=== PATIENT | male | born 1955 | race Caucasian/White ===

== ENCOUNTER 2016-09-09 16:56 | Emergency (ER) | payer MEDICARE, OTHER ==
[~2016-09-09] VITALS: Ht 170.2 cm; Wt 93.0 kg
[~2016-09-09 16:56] MED LIST: /LOR25TA PO; BYSTOLIC PO; COZA50TA PO; HYDR-3713 PO; MELO7.5T6 PO; METF1000 PO; METF500T PO; METF500T4 OR; MICA80TA3 PO; NEUR100C OR; NEUR600T PO; NICO21DI24 TD; PRAV20TA2 PO; PREG50CA OR; SITA50TAB PO; SOMA350T OR; TRAM50TA2 OR; VICO5TAB PO; VICODIN PO; ZANA4CAP OR; ZYLO300T4 PO; hydrcodone
[2016-09-09 16:57] VITALS: BP 166/96
[2016-09-09] MEDS ORDERED: IBUPROFEN 600 MG TAB PO ONE (17:30)
[2016-09-09] MEDS ORDERED: SOMA350T PO (17:35)
[2016-09-09] MEDS ORDERED: IBUP600T26 PO (17:35)
== END 2016-09-09 17:52 | disposition home or self-care (01) ==
LOC: M ED 17:46
DX: S76.312A Strain of muscle, fascia and tendon of the posterior muscle group at thigh level, left thigh, initial encounter (principal); X50.9XXA Other and unspecified overexertion or strenuous movements or postures, initial encounter; Y92.009 Unspecified place in unspecified non-institutional (private) residence as the place of occurrence of the external cause; Y93.89 Activity, other specified; Y99.8 Other external cause status; E11.9 Type 2 diabetes mellitus without complications; F17.210 Nicotine dependence, cigarettes, uncomplicated; Z79.899 Other long term (current) drug therapy; Z79.84 Long term (current) use of oral hypoglycemic drugs; Z79.1 Long term (current) use of non-steroidal anti-inflammatories (NSAID)

== ENCOUNTER → 2016-09-10 | Outpatient (CLI) | payer OTHER, MEDICARE ==
[~2016-09-10] MED LIST changes: +IBUP600T26 PO; +SOMA350T PO
[2016-09-10 09:39] LABS: MEAN CORPUSCULAR HEMOGLOBIN 32.7 pg (27.0-33.0); MEAN CORPUSCULAR HGB CONC 34.4 g/dl (32.0-36.5); MEAN CORPUSCULAR VOLUME 95.1 fl (80.0-96.0); RED CELL DISTRIBUTION WIDTH 13.4 % (11.5-14.5)
[2016-09-10 09:46] LABS: INR 0.91
[2016-09-10 10:01] LABS: ALBUMIN 3.4 GM/DL (3.2-5.2); ALBUMIN/GLOBULIN RATIO 0.89 (1.00-1.93); ALKALINE PHOSPHATASE 91 U/L (45-117); ALT/SGPT 25 U/L (12-78); ANION GAP 6 MEQ/L (8-16); AST/SGOT 13 U/L (15-37); BILIRUBIN,TOTAL 0.4 MG/DL (0.2-1.0); BLOOD UREA NITROGEN 23 MG/DL (7-18); CALCIUM LEVEL 8.8 MG/DL (8.8-10.2); CARBON DIOXIDE LEVEL 30 MEQ/L (21-32); CHLORIDE LEVEL 108 MEQ/L (98-107); CHOLESTEROL LEVEL 217 MG/DL (<200); CREATININE FOR GFR 0.92 MG/DL (0.70-1.30); GLOMERULAR FILTRATION RATE > 60.0 (>49); GLUCOSE, FASTING 125 MG/DL (80-110); POTASSIUM SERUM 4.4 MEQ/L (3.5-5.1); SODIUM LEVEL 144 MEQ/L (136-145); TOTAL PROTEIN 7.2 GM/DL (6.4-8.2); TRIGLYCERIDES LEVEL 235 MG/DL (<150)
--- NOTE | 2016-09-10 22:33 | REP ---
Clinical: Hypertension . Comparison: 08/28/2015 . Technique: PA and lateral. Findings: The mediastinum and cardiac silhouette are normal. The lung chopra are clear and without acute consolidation, effusion, or pneumothorax. Stable Antonio rods are identified in the lumbar spine. Epidural stimulator catheter with leads in the mid thoracic level. Impression: 1. No acute cardiopulmonary process. Signed by Meir Grewal MD 09/10/2016 10:25 P
--- NOTE | 2016-09-11 20:38 | ECGEPIP ---
Stationary ECG Study [facility] Test Date: 2016-09-10 Pat Name: ERINN NATION Department: Room: - Gender: M [employer] Principal: [employer] : 1955 Requested By: Purnima Sepulveda Order Number: [id number] Reading MD: Nando Mckinnon Measurements Intervals [place] Rate: 76 P: 53 OR: 140 QRS: 60 QRSD: 86 T: -12 QT: 360 QTc: 405 Interpretive Statements SINUS RHYTHM NONSPECIFIC T-WAVE ABNORMALITY Electronically Signed On 09-11-2016 20:38:16 EDT by Nando Mckinnon
== END ==
LOC: M LAB 08:56
PROVIDERS: ATTEND Family Medicine
DX: I10 Essential (primary) hypertension (principal); N40.1 Benign prostatic hyperplasia with lower urinary tract symptoms

== ENCOUNTER → 2017-03-06 | Outpatient (CLI) | payer MEDICARE ==
[~2017-03-06] MED LIST changes: +IBUP-1022 PO; -IBUP600T26 PO; -MELO7.5T6 PO; +MELO7.5T7 PO; -METF1000 PO; +METF10004 PO
== END ==
LOC: M LAB 13:18
PROVIDERS: ATTEND Family Medicine
DX: E11.9 Type 2 diabetes mellitus without complications (principal)

== ENCOUNTER → 2017-05-15 | Outpatient (CLI) | payer MEDICARE ==
[2017-05-15 12:09] LABS: ANION GAP 7 MEQ/L (8-16); BLOOD UREA NITROGEN 22 MG/DL (7-18); CALCIUM LEVEL 9.2 MG/DL (8.8-10.2); CARBON DIOXIDE LEVEL 30 MEQ/L (21-32); CHLORIDE LEVEL 103 MEQ/L (98-107); CHOLESTEROL LEVEL 221 MG/DL (<200); CREATININE FOR GFR 0.78 MG/DL (0.70-1.30); GLOMERULAR FILTRATION RATE > 60.0 (>49); GLUCOSE, FASTING 131 MG/DL (70-100); HDL CHOLESTEROL 58 MG/DL (>40); NON-HDL-C 163 MG/DL; POTASSIUM SERUM 4.4 MEQ/L (3.5-5.1); SODIUM LEVEL 140 MEQ/L (136-145); TRIGLYCERIDES LEVEL 165 MG/DL (<150)
[2017-05-15 13:06] LABS: CREATININE, URINE 27.7 MG/DL; MAU/CREAT RATIO 1209.3 MCG/MG (0.0-30.0)
[2017-05-15 14:05] LABS: ESTIMATED AVERAGE GLUCOSE 146 MG/DL (60-110); HEMOGLOBIN A1c 6.7 %
== END ==
LOC: M LAB 10:46
DX: E11.9 Type 2 diabetes mellitus without complications (principal); Z23 Encounter for immunization
CPT/HCPCS: 83036

== ENCOUNTER 2017-06-10 14:36 | Emergency (ER) | payer MEDICARE | END 2017-06-10 17:54 | disposition home or self-care (01) | LOC: M ED 14:36 | DX: S80.02XA Contusion of left knee, initial encounter (principal); W19.XXXA Unspecified fall, initial encounter; Y92.410 Unspecified street and highway as the place of occurrence of the external cause; M54.5 Low back pain; M51.36 Other intervertebral disc degeneration, lumbar region; I10 Essential (primary) hypertension; E78.5 Hyperlipidemia, unspecified; E11.9 Type 2 diabetes mellitus without complications; F17.200 Nicotine dependence, unspecified, uncomplicated; Z96.89 Presence of other specified functional implants; Z79.899 Other long term (current) drug therapy; Z79.84 Long term (current) use of oral hypoglycemic drugs; Z79.82 Long term (current) use of aspirin | CPT/HCPCS: 73564 ==

== ENCOUNTER → 2017-06-25 | Outpatient (REF) | payer MEDICARE ==
[2017-06-25 14:19] LABS: TOTAL PROTEIN,RANDOM URINE 30.5 MG/DL (0.0-12.0); URINE TOTAL PROTEIN 30.5 MG/DL (0-12)
[2017-06-25 14:20] LABS: COMPLEMENT C3 148 MG/DL (90-180); COMPLEMENT C4 42.3 MG/DL (10-40); TOTAL PROTEIN 7.5 GM/DL (6.4-8.2); TOTAL PROTEIN,RANDOM URINE 30.5 MG/DL (0.0-12.0); URINE VOLUME RANDOM ML
[2017-06-26 11:34] LABS: HEPATITIS B SURFACE ANTIGEN NEGATIVE (NEGATIVE)
[2017-06-26 11:37] LABS: HEPATITIS B SURFACE ANTIBODY POSITIVE (POSITIVE)
[2017-06-26 11:53] LABS: HEPATITIS C VIRUS ABY INDEX 0.2 INDEX (<0.8)
[2017-06-26 11:56] LABS: HIV 1&2 SCREEN CENTAUR NEGATIVE (NEGATIVE)
[2017-06-26 13:50] LABS: ALBUMIN % 53.5 % (55.8-66.1); ALPHA-1-GLOBULIN % 4.8 % (2.9-4.9); ALPHA-2-GLOBULINS % 14.2 % (7.1-11.8); BETA-1-GLOBULINS % 6.2 % (4.7-7.2)
[2017-06-26 13:51] LABS: ALBUMIN 4.01 GM/DL (3.29-5.55); ALPHA-1-GLOBULINS 0.36 GM/DL (0.17-0.41); ALPHA-2-GLOBULINS 1.07 GM/DL (0.42-0.99); BETA-1-GLOBULINS 0.47 GM/DL (0.28-0.60); BETA-2-GLOBULINS 0.49 GM/DL (0.19-0.55); BETA-2-GLOBULINS % 6.5 % (3.2-6.5); GAMMA GLOBULIN % 14.8 % (11.1-18.8); GAMMA GLOBULINS 1.11 GM/DL (0.65-1.58)
[2017-06-26 15:19] LABS: ANTI DOUBLE STRAND-DNA AB <1 IU/mL (0-9); ANTINUCLEAR ANTIBODIES DIRECT Positive (Negative); RNP ANTIBODIES <0.2 AI (0.0-0.9); SJOGREN'S ANTI SS-A <0.2 AI (0.0-0.9); SMITH ANTIBODIES <0.2 AI (0.0-0.9)
[2017-06-30 00:07] LABS: ANCA-ATYPICAL <1:20 titer (Neg:<1:20); ANTI DOUBLE STRAND-DNA AB <1 IU/mL (0-9); CYTOPLASMIC NEUTROP AB ANCA-C <1:20 titer (Neg:<1:20); PERINUCLEAR AB ANCA-P <1:20 titer (Neg:<1:20)
== END ==
LOC: M LAB REF 13:11
DX: R80.9 Proteinuria, unspecified (principal)
CPT/HCPCS: 84165

== ENCOUNTER → 2017-07-01 | Outpatient (CLI) | payer OTHER, MEDICARE | LOC: M RAD 13:08 | DX: M96.1 Postlaminectomy syndrome, not elsewhere classified (principal) ==

== ENCOUNTER → 2017-07-02 | Outpatient (CLI) | payer MEDICARE | LOC: M RAD 12:08 | DX: K76.89 Other specified diseases of liver (principal); E11.22 Type 2 diabetes mellitus with diabetic chronic kidney disease | CPT/HCPCS: 76775 ==

== ENCOUNTER → 2017-07-07 | Outpatient (CLI) | payer MEDICARE | LOC: M RAD 15:36 | DX: M25.562 Pain in left knee (principal); R93.7 Abnormal findings on diagnostic imaging of other parts of musculoskeletal system | CPT/HCPCS: 73700 ==

== ENCOUNTER 2017-08-25 09:34 | Day surgery (SDC) | payer MEDICARE ==
[2017-08-25] MEDS: NS 1,000 ML IV (10:30)
[2017-08-25] MEDS ORDERED: PROPOFOL 200 MG/20 ML VIAL As Ordered ×4 (11:07→12:50)
[2017-08-25] MEDS ORDERED: LIDOCAINE 2% INJ 100 MG/5 ML SDV (FOR ANES.) As Ordered (11:07)
[2017-08-25] MEDS ORDERED: fentaNYL 100 MCG/2 ML INJECTION (J3010) As Ordered (11:41)
== END 2017-08-25 13:53 | disposition home or self-care (01) ==
LOC: M OPP 09:34
DX: Z12.11 Encounter for screening for malignant neoplasm of colon (principal); K64.0 First degree hemorrhoids; K57.30 Diverticulosis of large intestine without perforation or abscess without bleeding; D12.0 Benign neoplasm of cecum; D12.2 Benign neoplasm of ascending colon; D12.3 Benign neoplasm of transverse colon; D12.4 Benign neoplasm of descending colon; D12.8 Benign neoplasm of rectum; Z80.0 Family history of malignant neoplasm of digestive organs; I12.9 Hypertensive chronic kidney disease with stage 1 through stage 4 chronic kidney disease, or unspecified chronic kidney disease; N18.9 Chronic kidney disease, unspecified; E11.9 Type 2 diabetes mellitus without complications; F17.210 Nicotine dependence, cigarettes, uncomplicated; M17.12 Unilateral primary osteoarthritis, left knee; Z79.82 Long term (current) use of aspirin; Z79.84 Long term (current) use of oral hypoglycemic drugs; Z79.899 Other long term (current) drug therapy; Z98.1 Arthrodesis status; Z96.9 Presence of functional implant, unspecified
CPT/HCPCS: 45385

== ENCOUNTER → 2017-08-26 | Outpatient (REF) | payer MEDICARE ==
[2017-08-26 14:00] LABS: TOTAL PROTEIN,RANDOM URINE 52.9 MG/DL (0.0-12.0)
[2017-08-28 00:07] LABS: FREE KAPPA LIGHT CHAINS SERUM 24.8 mg/L (3.3-19.4); FREE LAMBDA LIGHT CHAINS SERUM 16.9 mg/L (5.7-26.3); KAPPA/LAMBDA RATIO SERUM 1.47 (0.26-1.65)
== END ==
LOC: M LAB REF 13:06
DX: R80.9 Proteinuria, unspecified (principal)
CPT/HCPCS: 84156

== ENCOUNTER → 2017-09-11 | Outpatient (REF) | payer MEDICARE ==
[2017-09-11 14:22] LABS: TOTAL VOLUME, URINE 1400 ML
[2017-09-11 14:34] LABS: CREATININE 24 HOUR, URINE 1248.8 MG/24HR (950-2500); CREATININE, URINE 89.2 MG/DL; TOTAL PROTEIN 24 HOUR URINE 807.8 MG/24HR (50-150); URINE TOTAL PROTEIN 57.7 MG/DL (0-12)
== END ==
LOC: M LAB REF 13:36
DX: R80.9 Proteinuria, unspecified (principal)
CPT/HCPCS: 81050

== ENCOUNTER → 2017-09-18 | Outpatient (CLI) | payer MEDICARE ==
[2017-09-18 12:45] LABS: CREATININE, URINE 63.1 MG/DL; URINE TOTAL PROTEIN 57.9 MG/DL (0-12)
[2017-09-18 12:46] LABS: ALBUMIN 3.6 GM/DL (3.2-5.2); ALBUMIN/GLOBULIN RATIO 0.97 (1.00-1.93); ALKALINE PHOSPHATASE 115 U/L (45-117); ALT/SGPT 33 U/L (12-78); ANION GAP 4 MEQ/L (8-16); AST/SGOT 17 U/L (7-37); BILIRUBIN,TOTAL 0.4 MG/DL (0.2-1.0); BLOOD UREA NITROGEN 21 MG/DL (7-18); CALCIUM LEVEL 9.4 MG/DL (8.8-10.2); CARBON DIOXIDE LEVEL 30 MEQ/L (21-32); CHLORIDE LEVEL 105 MEQ/L (98-107); CHOLESTEROL LEVEL 161 MG/DL (<200); CHOLESTEROL RISK RATIO 3.354 (<5); CREATININE FOR GFR 0.88 MG/DL (0.70-1.30); GLOMERULAR FILTRATION RATE > 60.0 (>49); GLUCOSE, FASTING 153 MG/DL (70-100); HDL CHOLESTEROL 48 MG/DL (>40); LDL CHOLESTEROL 70.6 MG/DL (<100); NON-HDL-C 113 MG/DL; POTASSIUM SERUM 5.1 MEQ/L (3.5-5.1); SODIUM LEVEL 139 MEQ/L (136-145); TOTAL PROTEIN 7.3 GM/DL (6.4-8.2); TRIGLYCERIDES LEVEL 212 MG/DL (<150)
[2017-09-18 13:19] LABS: ESTIMATED AVERAGE GLUCOSE 171 MG/DL (60-110); HEMOGLOBIN A1c 7.6 %
[2017-09-24 13:55] LABS: UPEP INTERPRETATION NO M-SPIKE NOTED; URINE VOLUME RANDOM ML
== END ==
LOC: M LAB 10:46
DX: E11.9 Type 2 diabetes mellitus without complications (principal); R80.9 Proteinuria, unspecified
CPT/HCPCS: 80053

== ENCOUNTER → 2017-10-06 | Outpatient (REF) | payer MEDICARE, OTHER ==
[2017-10-06 17:39] LABS: BASO # 0.1 10^3/uL (0.0-0.2); BASO % 0.8 % (0.0-1.0); EOS # 0.1 10^3/uL (0.0-0.50); EOS % 1.8 % (0.0-3.0); HEMATOCRIT 52.2 % (42.0-52.0); HEMOGLOBIN 18.2 g/dl (13.5-17.5); IMMATURE GRANULOCYTE % 0.5 % (0-3.0); LYMPH # 2.3 10^3/uL (1.5-4.5); LYMPH % 29.1 % (24.0-44.0); MEAN CORPUSCULAR HEMOGLOBIN 32.1 pg (27.0-33.0); MEAN CORPUSCULAR HGB CONC 34.9 g/dl (32.0-36.5); MEAN CORPUSCULAR VOLUME 92.1 fl (80.0-96.0); MONO # 0.7 10^3/uL (0.0-0.8); MONO % 8.6 % (0.0-5.0); NEUTROPHILS # 4.7 10^3/uL (1.8-7.7); NEUTROPHILS % 59.2 % (36.0-66.0); PLATELET COUNT, AUTOMATED 183 10^3/uL (150-450); RED BLOOD COUNT 5.67 10^6/uL (4.30-6.10); RED CELL DISTRIBUTION WIDTH 12.9 % (11.5-14.5); WHITE BLOOD COUNT 7.9 10^3/uL (4.0-10.0)
[2017-10-06 17:40] LABS: C REACTIVE PROTEIN QUANTITATIV 0.55 MG/DL (0.00-0.30); RHEUMATOID FACTOR QUANT < 10.0 IU/ML (<15.0)
[2017-10-06 17:40] LABS: URIC ACID 8.6 MG/DL (3.5-7.2)
[2017-10-06 19:26] LABS: ERYTHROCYTE SEDIMENTATION RATE 6 mm/hr (0-20)
[2017-10-09 15:02] LABS: ANTI DOUBLE STRAND-DNA AB <1 IU/mL (0-9); ANTINUCLEAR ANTIBODIES DIRECT Positive (Negative); Lyme Disease IgG/IgM Antibodie <0.91 ISR (0.00-0.90); Lyme Disease IgM Ab Quantitati <0.80 index (0.00-0.79); RNP ANTIBODIES <0.2 AI (0.0-0.9); SJOGREN'S ANTI SS-A <0.2 AI (0.0-0.9); SJOGREN'S ANTI SS-B 2.3 AI (0.0-0.9); SMITH ANTIBODIES <0.2 AI (0.0-0.9)
== END ==
LOC: M LABDRAW1 15:37
DX: M25.562 Pain in left knee (principal)
CPT/HCPCS: 84550

== ENCOUNTER → 2017-11-24 | Outpatient (CLI) | payer MEDICARE ==
[~2017-11-24] MED LIST changes: -/LOR25TA PO; -BYSTOLIC PO; +CONRAY-43 43% 50ML VIAL (Q9960) As Ordered; -COZA50TA PO; -HYDR-3713 PO; -IBUP-1022 PO; -MELO7.5T7 PO; -METF10004 PO; -METF500T PO; -METF500T4 OR; -MICA80TA3 PO; -NEUR100C OR; -NEUR600T PO; -NICO21DI24 TD; -PRAV20TA2 PO; -PREG50CA OR; -SITA50TAB PO; -SOMA350T OR; -SOMA350T PO; -TRAM50TA2 OR; -VICO5TAB PO; -VICODIN PO; -ZANA4CAP OR; -ZYLO300T4 PO; -hydrcodone
== END ==
LOC: M RADPRO 08:59
DX: M76.52 Patellar tendinitis, left knee (principal); Z79.82 Long term (current) use of aspirin; Z96.698 Presence of other orthopedic joint implants
CPT/HCPCS: 27370

== ENCOUNTER → 2018-01-06 | Outpatient (REF) | payer MEDICARE ==
[2018-01-06 18:44] LABS: ANION GAP 11 MEQ/L (8-16); BLOOD UREA NITROGEN 17 MG/DL (7-18); CALCIUM LEVEL 9.5 MG/DL (8.8-10.2); CARBON DIOXIDE LEVEL 26 MEQ/L (21-32); CHLORIDE LEVEL 100 MEQ/L (98-107); CHOLESTEROL LEVEL 182 MG/DL (<200); CHOLESTEROL RISK RATIO 3.192 (<5); COMPLEMENT C3 180 MG/DL (90-180); CREATININE FOR GFR 0.86 MG/DL (0.70-1.30); GLOMERULAR FILTRATION RATE > 60.0 (>49); GLUCOSE, FASTING 129 MG/DL (70-100); HDL CHOLESTEROL 57 MG/DL (>40); LDL CHOLESTEROL 80 MG/DL (<100); NON-HDL-C 125 MG/DL; POTASSIUM SERUM 3.7 MEQ/L (3.5-5.1); SODIUM LEVEL 137 MEQ/L (136-145); TRIGLYCERIDES LEVEL 223 MG/DL (<150)
[2018-01-06 19:19] LABS: CREATININE, URINE 80.1 MG/DL; MAU/CREAT RATIO 506.9 MCG/MG (0.0-30.0)
[2018-01-06 21:00] LABS: ESTIMATED AVERAGE GLUCOSE 154 MG/DL (60-110)
[2018-01-09 00:06] LABS: ANA (HEP2) Positive (.); ANTI DOUBLE STRAND-DNA AB <1 IU/mL (0-9)
== END ==
LOC: M SFHCPLAZ 15:09
DX: R76.8 Other specified abnormal immunological findings in serum (principal); E11.21 Type 2 diabetes mellitus with diabetic nephropathy; Z23 Encounter for immunization
CPT/HCPCS: 83036

== ENCOUNTER → 2018-02-18 | Outpatient (CLI) | payer MEDICARE | LOC: M RADPRO 08:31 | DX: S80.01XA Contusion of right knee, initial encounter (principal); Y92.89 Other specified places as the place of occurrence of the external cause; Y93.89 Activity, other specified; X58.XXXA Exposure to other specified factors, initial encounter; Y99.8 Other external cause status; M94.261 Chondromalacia, right knee; M25.761 Osteophyte, right knee | CPT/HCPCS: 27370 ==

== ENCOUNTER → 2018-02-24 | Outpatient (REF) | payer MEDICARE ==
[2018-02-24 18:17] LABS: TOTAL PROTEIN,RANDOM URINE 76.3 MG/DL (0.0-12.0)
== END ==
LOC: M LAB REF 17:15
DX: N18.2 Chronic kidney disease, stage 2 (mild) (principal); R80.9 Proteinuria, unspecified
CPT/HCPCS: 84156

== ENCOUNTER → 2018-03-18 | Outpatient (CLI) | payer MEDICARE ==
[2018-03-18 12:03] LABS: ANION GAP 8 MEQ/L (8-16); BLOOD UREA NITROGEN 18 MG/DL (7-18); CALCIUM LEVEL 8.6 MG/DL (8.8-10.2); CARBON DIOXIDE LEVEL 28 MEQ/L (21-32); CHLORIDE LEVEL 103 MEQ/L (98-107); CREATININE FOR GFR 0.88 MG/DL (0.70-1.30); GLOMERULAR FILTRATION RATE > 60.0 (>49); GLUCOSE, FASTING 182 MG/DL (70-100); SODIUM LEVEL 139 MEQ/L (136-145)
== END ==
LOC: M LAB 11:03
DX: Z01.812 Encounter for preprocedural laboratory examination (principal); M25.562 Pain in left knee
CPT/HCPCS: 80048

== ENCOUNTER → 2018-04-30 | Outpatient (CLI) | payer MEDICARE ==
[~2018-04-30] MED LIST changes: +/LOR25TA PO; +ASPI81TA24 PO; +ATOR1TAB21 PO; +BUPR15TASR PO; +BYSTOLIC PO; +CHAN1PAK11; +CHLO125TA PO; -CONRAY-43 43% 50ML VIAL (Q9960) As Ordered; +COZA50TA PO; +CYCL10TA PO; +DICY10CA13 PO; +HYDR-3713 PO; +IBUP-1022 PO; +LYRI75CA PO; +MELO7.5T7 PO; +METF10004 PO; +METF500T PO; +METF500T4 OR; +MICA80TA3 PO; +NEUR100C OR; +NEUR600T PO; +NICO21DI24 TD; +PERC5TAB12 PO; +PRAV20TA2 PO; +PREG50CA OR; +SITA50TAB PO; +SOMA350T OR; +SOMA350T PO; +TIZA2CAP PO; +TIZA4CAP PO; +TRAM50TA2 OR; +VICO5TAB PO; +VICODIN PO; +ZANA4CAP OR; +ZYLO300T6 PO; +hydrcodone
[2018-04-30 10:10] LABS: BASO % 0.5 % (0.0-1.0); EOS # 0.2 10^3/uL (0.0-0.50); HEMATOCRIT 52.8 % (42.0-52.0); LYMPH % 30.5 % (24.0-44.0); MEAN CORPUSCULAR HEMOGLOBIN 31.7 pg (27.0-33.0); MEAN CORPUSCULAR HGB CONC 34.1 g/dl (32.0-36.5); MONO # 0.6 10^3/uL (0.0-0.8); MONO % 8.8 % (0.0-5.0); NEUTROPHILS # 3.6 10^3/uL (1.8-7.7); NEUTROPHILS % 56.7 % (36.0-66.0); PLATELET COUNT, AUTOMATED 164 10^3/uL (150-450); RED BLOOD COUNT 5.68 10^6/uL (4.30-6.10); WHITE BLOOD COUNT 6.4 10^3/uL (4.0-10.0)
[2018-04-30 10:35] LABS: BLOOD UREA NITROGEN 18 MG/DL (7-18); CALCIUM LEVEL 8.9 MG/DL (8.8-10.2); CARBON DIOXIDE LEVEL 29 MEQ/L (21-32); CHLORIDE LEVEL 99 MEQ/L (98-107); GLOMERULAR FILTRATION RATE > 60.0 (>49); GLUCOSE, FASTING 209 MG/DL (70-100); POTASSIUM SERUM 4.1 MEQ/L (3.5-5.1); SODIUM LEVEL 138 MEQ/L (136-145)
[2018-04-30 10:37] LABS: HEMOGLOBIN A1c 8.4 %
[2018-04-30 11:11] LABS: CREATININE, URINE 72.5 MG/DL; MAU/CREAT RATIO 903.4 MCG/MG (0.0-30.0)
== END ==
LOC: M LAB 09:41
PROVIDERS: ATTEND Family Medicine
DX: E11.21 Type 2 diabetes mellitus with diabetic nephropathy (principal); R61 Generalized hyperhidrosis

== ENCOUNTER 2018-06-02 11:43 | Inpatient (IN) | payer MEDICARE ==
[~2018-06-02] VITALS: Ht 167.6 cm; Wt 109.1 kg
[2018-06-02] MEDS ORDERED: POTA1TAB23 PO (11:53)
[2018-06-02] MEDS ORDERED: AMLO10TA5 PO (11:53)
[2018-06-02] MEDS ORDERED: GLIP10TA18 PO (11:53)
[2018-06-02] MEDS ORDERED: LOSA100T50 PO (11:53)
[2018-06-02] MEDS ORDERED: EPINEPHrine INJ 1 MG/ML 1ML AMP IM STA (12:04)
[2018-06-02] MEDS ORDERED: methylPREDNISolone INJ 125 MG/2 ML VIAL (J2930) IV ONE (12:15)
[2018-06-02] MEDS ORDERED: diphenhydrAMINE INJ 50MG/ML VIAL (J1200) IV ONE (12:15)
[2018-06-02] MEDS ORDERED: FAMOTIDINE IV BAG 20 MG in APPROPRIATE DILUENT 1 EA IV ONE (12:15)
[2018-06-02] MEDS ORDERED: ALBUTEROL SULFATE 2.5 MG/0.5 ML INH NEB SOLN INH ONE (12:15)
[2018-06-02 12:59] LABS: BASO # 0.1 10^3/uL (0.0-0.2); BASO % 0.6 % (0.0-1.0); EOS # 0.1 10^3/uL (0.0-0.50); EOS % 0.7 % (0.0-3.0); LYMPH # 1.4 10^3/uL (1.5-4.5); LYMPH % 15.9 % (24.0-44.0); MEAN CORPUSCULAR HEMOGLOBIN 30.8 pg (27.0-33.0); MEAN CORPUSCULAR HGB CONC 34.1 g/dl (32.0-36.5); MEAN CORPUSCULAR VOLUME 90.1 fl (80.0-96.0); MONO # 0.6 10^3/uL (0.0-0.8); MONO % 7.1 % (0.0-5.0); NEUTROPHILS # 6.7 10^3/uL (1.8-7.7); NEUTROPHILS % 75.1 % (36.0-66.0); PLATELET COUNT, AUTOMATED 157 10^3/uL (150-450); RED BLOOD COUNT 6.47 10^6/uL (4.30-6.10); WHITE BLOOD COUNT 8.9 10^3/uL (4.0-10.0)
[2018-06-02] MEDS: IPRATROPIUM 0.5MG/ALBUTEROL 2.5MG INH SOL UD 3ML (DUONEB)(J7620) NEB SCH ×3 (13:05→13:25)
[2018-06-02 13:06] LABS: HEMATOCRIT 58.3 % (42.0-52.0); HEMOGLOBIN 19.9 g/dl (13.5-17.5)
[2018-06-02 13:23] LABS: BILIRUBIN,TOTAL 0.7 MG/DL (0.2-1.0); CALCIUM LEVEL 8.5 MG/DL (8.8-10.2); CREATININE FOR GFR 1.98 MG/DL (0.70-1.30); GLOMERULAR FILTRATION RATE 36.5 (>49); POTASSIUM SERUM 3.7 MEQ/L (3.5-5.1)
[2018-06-02 13:24] LABS: ALBUMIN 3.1 GM/DL (3.2-5.2); BILIRUBIN,DIRECT 0.2 MG/DL (0.0-0.2); TOTAL PROTEIN 7.4 GM/DL (6.4-8.2)
--- NOTE | 2018-06-02 13:52 | REP ---
AP PORTABLE CHEST: 06/02/2018. Comparison: Chest x-ray 09/10/2016. Clinical history: Dyspnea and cough. Findings: The dorsal column stimulator leads have been removed from the thoracic spine. Their course along the paraspinal region to the left upper abdomen is no longer evident. There is evidence of lumbar fusion with pedicle screws and arch bars at the L1 level which is the lower most field of view. Lungs are well inflated. Some mildly prominent interstitial markings and peribronchial thickening that might reflect some bronchitis or reactive airway disease. I do not see dense consolidation with air bronchograms. No pleural effusion, lateral pleural thickening or apical scar. The heart is not enlarged. The aorta is mildly tortuous but normal for age. Airway is intact. The pulmonary arteries are symmetric. Bones with degenerative changes at the spine. There has been interval distal clavicular excision on the left. 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 Impression: 1. Some changes of bronchitis or reactive airway disease without dense consolidation, pleural effusion, cardiomegaly or edema. Electronically Signed by Luis Fitzgerald MD 06/02/2018 09:20 P
[2018-06-02] MEDS ORDERED: diphenhydrAMINE 12.5MG/5ML ELIXIR UDC PO ONE (14:45)
[2018-06-02] MEDS ORDERED: AZITHROMYCIN INJ 500 MG, VIAL MATE ADAPTER 1 EACH in D5W 250 ML IV ONE (17:30)
[2018-06-02] MEDS ORDERED: BUPR1TAB53 PO (18:20)
[2018-06-02] MEDS ORDERED: ATOR40TA75 PO (18:20)
[2018-06-02] MEDS ORDERED: VITA100066 PO (18:20)
[2018-06-02] MEDS ORDERED: CHLO25TA PO (18:20)
[2018-06-02] MEDS ORDERED: PREG100CA PO (18:23)
[2018-06-02] MEDS ORDERED: BUPR15TASR PO (18:23)
[2018-06-02] MEDS ORDERED: NS 500 ML IV ONE (21:00)
[2018-06-02] MEDS ORDERED: IPRATROPIUM 0.5MG/ALBUTEROL 2.5MG INH SOL UD 3ML (DUONEB)(J7620) NEB PRN (21:30)
[2018-06-02] MEDS ORDERED: ALBUTEROL SULFATE 2.5 MG/0.5 ML INH NEB SOLN NEB PRN (22:00)
[2018-06-02] MEDS ORDERED: methylPREDNISolone INJ 125 MG/2 ML VIAL (J2930) IV SCH (22:00)
[2018-06-02] MEDS: NS 1,000 ML IV SCH (22:13)
[2018-06-02] MEDS ORDERED: GLUCAGON FOR INJ 1 MG VIAL (J1610) SC PRN (22:15)
[2018-06-02] MEDS ORDERED: GLUCOSE 4 GM CHEW TABLET PO PRN (22:15)
[2018-06-02] MEDS ORDERED: DEXTROSE 50% 50 ML SYRINGE IV PRN (22:15)
--- NOTE | 2018-06-02 22:26 | HPE ---
DATE OF ADMISSION: 06/02/2018 CHIEF COMPLAINT: Shortness of breath, tongue swelling, lip swelling, throat swelling. HISTORY OF PRESENT ILLNESS: This is a 63-year-old gentleman with past medical history of type 2 diabetes, hypertension, hyperlipidemia, who presents with a chief complaint of 1-day history of lip, tongue, and throat swelling with shortness of breath. The patient reports he was in his usual state of health until this morning while he was having his morning coffee, and all of a sudden he saw his lip, tongue swell, and his throat also felt like it was swollen. He was having trouble breathing. He immediately called for medical attention. He has had a nonproductive cough. He denies any prior incidents like this. He does have a long smoking history, smoking 1-2 packs a day for the last 45 years and recently quit. No known diagnosis of emphysema or chronic obstructive pulmonary disease (COPD). No known history of allergic reactions. He denies taking any new medications or eating any new foods in the recent history. No recent intake of shellfish. EMERGENCY ROOM (ER): In the emergency room, the patient was given oxygen supplementation, nebulizers, a dose of Solu-Medrol, a dose of epinephrine, Benadryl with significant improvement in his swelling. He is still requiring oxygen in the emergency room and a VentiMask with saturations in the low 90s. After the treatments, his swelling significantly improved. He is being admitted for observation, given the significant angioedema and ongoing hypoxia. REVIEW OF SYSTEMS: Negative in 14 out of 14 systems except as noted above. PAST MEDICAL HISTORY: As noted above in history of present illness (HPI). PAST SURGICAL HISTORY: The patient has a long list of surgeries, includin. Back surgery. 2. Toe surgery. 3. Left elbow surgery. 4. Left shoulder surgery. 5. Left carpal tunnel surgery. 6. Left knee surgery. MEDICATIONS: The patient's home medications include: - glipizide 10 mg daily - losartan 100 mg daily - potassium 10 mEq twice a day - tizanidine 4 mg three times a day as needed spasm - amlodipine 10 mg daily - aspirin 81 mg daily - Lipitor 40 mg at bedtime - bupropion 150 mg twice daily - chlorthalidone 25 mg daily - vitamin D 1000 units daily - dicyclomine 10 mg by mouth before meals and at bedtime - Lyrica 100 mg three times a day ALLERGIES: No known drug allergies. SOCIAL HISTORY: The patient lives with his , who is currently in the hospital in [place]. He does have four children, and his daughter is his healthcare proxy. He does drink about a 12-pack per week and has a long smoking history with one or two packs for the last 47 years, although he report having quit about a week ago. FAMILY HISTORY: No family history of allergic diseases. PHYSICAL EXAMINATION: On examination in the ER, the patient's vital signs currently are: Blood pressure 116/56. Heart rate of 75. Saturating 91% on the Venturi mask. Respiratory rate 22. In general, he appears slightly short of breath but is able to speak in complete sentences. HEENT examination: Oropharynx is clear. Lip swelling has resolved. There is no visible tongue swelling at this time. Cardiovascular: The patient is regular rate and rhythm. No murmurs, rubs, or gallops. Lungs: The patient does have some upper airway noise but no audible wheezing or stridor and no accessory muscle use. Abdomen: Soft, nontender, nondistended. Positive bowel sounds. Extremities: No clubbing, cyanosis, or edema. Neurologic: Alert and oriented times three. Follows simple commands. Skin: Intact. Psychiatric: Mood stable. Musculoskeletal: Moves all extremities equally. LABORATORIES: Reveal complete blood count (CBC) with white count of 8.9, hemoglobin 19.9, hematocrit 58, platelets of 157. Chemistry shows creatinine of 1.98, last creatinine was normal, complement levels are pending. IMAGING: Shows chest x-ray with some changes of bronchitis, reactive airway disease without dense consolidation, pleural effusion, cardiomegaly, or edema. ASSESSMENT AND PLAN: This is a 63-year-old gentleman with past medical history of diabetes and hypertension and a [id number] smoking history who presents with the chief complaint of lip, tongue, and throat swelling with shortness of breath and nonproductive cough. PROBLEMS: 1. Angioedema seems to be improved status post treatment in the ER. I am going to continue him on Solu-Medrol every 8 hours. He is also going to continue on nebulizers around the clock and as needed. I have spoken with Dr. Ha with pulmonology, and she will see him in the morning. She has gone over the plan with me today. Per Dr. Ha, angioedema by itself would not cause any hypoxia, and the patient probably has a couple of different processes currently contributing to his clinical picture. No known trigger for his angioedema. No new medications or foods. Emergency room sent complement levels, and we will followup on this. 2. Hypoxia. The patient does have a long smoking history, and it is possible that he has undiagnosed COPD or emphysema. I am going to treat him as a COPD exacerbation with steroids every 8 and nebulizers around the clock and as needed. I will also place him on azithromycin, given he is having nonproductive cough. Dr. Ha will see him tomorrow. He does follow with Dr. Irby as an outpatient but does not report having spirometries done in the past. He likely will benefit from one as an outpatient. He has already quit smoking, and smoking cessation education was given to the patient. 3. Diabetes. I am holding his home glipizide and placing him on an insulin sliding scale. 4. Acute kidney injury. The patient's creatinine is 1.98, and normally he has a normal creatinine. I have placed him on normal saline bolus and intravenous (IV) fluids at 75 mL/h. This may be possibly due to prerenal etiology. However, if it does not improve, should have a full acute kidney injury workup. His CBC is also hemoconcentrated, suggesting likely dehydration. We will repeat a CBC and basic metabolic profile (BMP) and in the morning. 5. Deep venous thrombosis (DVT) prophylaxis. The patient is on subcutaneous heparin.
[2018-06-02 22:57] VITALS: BP 147/74
[2018-06-02] MEDS: ATORVASTATIN 20 MG TAB PO SCH (23:22)
[2018-06-02] MEDS: PREGABALIN 100 MG CAP (LYRICA) PO SCH (23:22)
[2018-06-02] MEDS: methylPREDNISolone INJ 40 MG/1 ML VIAL (J2920) IV SCH (23:23)
[2018-06-03] VITALS (7 sets, daily range): BP systolic 131–147; BP diastolic 69–87
[2018-06-03] MEDS: DICYCLOMINE 10 MG CAP PO SCH ×5 (00:31→20:51)
[2018-06-03] MEDS: buPROPion **SR TABLET** (ZYBAN) 150MG PO SCH ×3 (00:32→20:51)
[2018-06-03] MEDS: IPRATROPIUM 0.5MG/ALBUTEROL 2.5MG INH SOL UD 3ML (DUONEB)(J7620) NEB SCH ×5 (01:21→23:30)
[2018-06-03] MEDS: methylPREDNISolone INJ 40 MG/1 ML VIAL (J2920) IV SCH (05:02)
[2018-06-03] MEDS: HEPARIN SOD (PORCINE) 5000 UNITS/ML VIAL SC SCH ×2 (05:02→13:48)
[2018-06-03 07:01] LABS: HEMATOCRIT 50.4 % (42.0-52.0); MEAN CORPUSCULAR HEMOGLOBIN 30.9 pg (27.0-33.0); MEAN CORPUSCULAR HGB CONC 34.1 g/dl (32.0-36.5); MEAN CORPUSCULAR VOLUME 90.5 fl (80.0-96.0); PLATELET COUNT, AUTOMATED 161 10^3/uL (150-450); RED BLOOD COUNT 5.57 10^6/uL (4.30-6.10); WHITE BLOOD COUNT 6.6 10^3/uL (4.0-10.0)
[2018-06-03 07:04] LABS: CREATININE FOR GFR 1.56 MG/DL (0.70-1.30); GLOMERULAR FILTRATION RATE 48.1 (>49); HEMOGLOBIN 17.2 g/dl (13.5-17.5); POTASSIUM SERUM 3.9 MEQ/L (3.5-5.1)
[2018-06-03] MEDS ORDERED: GLUCAGON FOR INJ 1 MG VIAL (J1610) SC PRN (07:30)
[2018-06-03] MEDS ORDERED: GLUCOSE 4 GM CHEW TABLET PO PRN (07:30)
[2018-06-03] MEDS ORDERED: DEXTROSE 50% 50 ML SYRINGE IV PRN (07:30)
--- NOTE | 2018-06-03 07:57 | ECGEPIP ---
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
[2018-06-03] MEDS: PREGABALIN 100 MG CAP (LYRICA) PO SCH ×3 (08:40→20:51)
[2018-06-03] MEDS: ASPIRIN 81 MG ENTERIC TAB PO SCH (08:40)
[2018-06-03] MEDS: VITAMIN D 1,000 INTERNATIONAL UNITS TABLET PO SCH (08:40)
[2018-06-03] MEDS: amLODIPine 10 MG TAB PO SCH (08:43)
[2018-06-03] MEDS ORDERED: HumaLOG INSULIN (NovoLOG) PER UNIT SC ONE ×2 (08:45→14:00)
[2018-06-03] MEDS ORDERED: CHLORTHALIDONE 25 MG TAB PO SCH (09:00)
[2018-06-03] MEDS ORDERED: AZITHROMYCIN 250 MG TAB PO SCH (09:00)
[2018-06-03] MEDS ORDERED: LEVEMIR (INSULIN DETEMIR) 1 UNITS/0.01ML SC SCH (09:00)
[2018-06-03] MEDS: NS 1,000 ML IV SCH ×2 (11:07→23:10)
[2018-06-03] MEDS ORDERED: HumaLOG INSULIN (NovoLOG) PER UNIT SC SCH ×2 (12:00→21:00)
--- NOTE | 2018-06-03 12:42 | REP ---
CT of the chest without IV contrast: Comparisons are the chest CT dated 09/25/2011 and portable chest dated 06/02/2018. There are focal patchy densities in the right upper lobe and right lower lobe as a change from the common prior comparison CT. These are nonspecific and could represent subsegmental infiltrates or poorly defined nodules. Follow-up to complete resolution is recommended. Left lung is clear. There are no pleural effusions. The mediastinal azygos node measures 1 cm short axis which is upper normal. This is unchanged from the prior study. There is no mediastinal lymph node enlargement. There is no axillary lymph node enlargement. The study is insensitive for hilar lymph node enlargement in the absence of IV contrast. The unenhanced thoracic aorta is unremarkable. Cardiac size is normal. The pulmonary trunk measures 27 mm transverse diameter which is upper normal. There is coronary artery calcified atheroma. The visualized upper abdominal contents are unremarkable. Impression: There are focal patchy irregular densities in the right upper lobe and right lower lobe, nonspecific, subsegmental infiltrates versus poorly defined nodules. Follow-up to complete resolution is recommended. There are no pleural effusions. No adenopathy. The main pulmonary trunk is upper normal transverse diameter size. Electronically Signed by Maximo West MD 06/03/2018 12:33 P
[2018-06-03 13:41] LABS: ABG BASE EXCESS 1.5 (-2.0-2.0); ABG HCO3 26.4 MEQ/L (22.0-26.0); ABG O2 SATURATION 89.7 % (95.0-99.0); ABG PARTIAL PRESSURE CO2 42.5 mmHg (35.0-45.0); ABG PARTIAL PRESSURE O2 59.5 mmHg (75.0-100.0); ABG STANDARD HCO3 25.5 MEQ/L (22.0-26.0); ABG TOTAL CO2 27.7 MEQ/L (23.0-31.0); ABG pH (ARTERIAL) 7.411 UNITS (7.350-7.450)
[2018-06-03 14:00] LABS: HEMATOCRIT 49.9 % (42.0-52.0); HEMOGLOBIN 17.1 g/dl (13.5-17.5); MEAN CORPUSCULAR HEMOGLOBIN 30.9 pg (27.0-33.0); MEAN CORPUSCULAR HGB CONC 34.3 g/dl (32.0-36.5); MEAN CORPUSCULAR VOLUME 90.2 fl (80.0-96.0); PLATELET COUNT, AUTOMATED 186 10^3/uL (150-450); RED BLOOD COUNT 5.53 10^6/uL (4.30-6.10); WHITE BLOOD COUNT 8.2 10^3/uL (4.0-10.0)
[2018-06-03] MEDS ORDERED: NS 500 ML IV ONE ×2 (14:00→16:45)
[2018-06-03] MEDS ORDERED: LEVEMIR (INSULIN DETEMIR) 1 UNITS/0.01ML SC ONE (14:00)
[2018-06-03 14:31] LABS: CALCIUM LEVEL 8.2 MG/DL (8.8-10.2); CREATININE FOR GFR 1.46 MG/DL (0.70-1.30); GLOMERULAR FILTRATION RATE 51.9 (>49); POTASSIUM SERUM 3.7 MEQ/L (3.5-5.1)
--- NOTE | 2018-06-03 14:32 | PFTRPT ---
Height: 66.00 Inches Weight: 216.00 Lbs BSA: 2.07 Diagnosis: SOB DATE OF PROCEDURE: 06/03/2018 ORDERED BY: Dr. Ha Spirometry: Study of excellent technical quality. Forced vital capacity is reduced. FEV1 is generally in proportion. Obstructive index is, therefore, normal. Flow Volume Loop: Expiratory limb of the flow volume loop does suggest predominantly an obstructive defect, however. IMPRESSION: Suspect obstructive ventilatory defect with air trapping versus true concomitant restriction. Full study and clinical correlation recommended. MTDD
--- NOTE | 2018-06-03 16:04 | IPNPDOC ---
Text Note Date of Service The patient was seen on 06/03/18. NOTE Subjective: Patient feels well. States his dyspnea is mildly improving. Denies chest pain/palpitations. Objective: Vitals: (see below) General: No acute distress, laying comfortably in bed. HEENT: Moist mucous membranes. Neck: No JVD or lymphadenopathy. No stridor. Cardiac: RRR, No murmurs Pulm: Expiratory wheezing b/l. + wheezing. Minimal crackles at the bases. No use of accessory muscles. Abd: NT/ND + BS Ext: No edema or cyanosis Labs (see below) Images: CT chest on 06/03/18 Impression: There are focal patchy irregular densities in the right upper lobe and right lower lobe, nonspecific, subsegmental infiltrates versus poorly defined nodules. Follow-up to complete resolution is recommended. There are no pleural effusions. No adenopathy. The main pulmonary trunk is upper normal transverse diameter size. Assessment/Plan 1. Hypoxia/Dyspnea likely multifactorial, with the patient likely having underlying COPD. Continue nebs. Will discontinue steroids per pulmonary. Appreciate Dr. Ha's input. Pt presented with angioedema on admission, received Solu-Medrol, epi, Benadryl. Patient does not have stridor at this time. Status post Solu-Medrol. Feeling much better, however is now back to his baseline. Stopped smoking this he became ill. Will need close outpatient follow- up with pulmonary. We will await further recommendations by pulmonary due to the patient's abnormal CAT scan. 2. Acute kidney injury likely secondary to the patient's diuretics as well as ARB, which have since been discontinued. Continue IV fluids. Renal function improving. We'll also send patient for renal ultrasound. 3. Uncontrolled Diabetes mellitus we will hold by mouth meds. Started on Levemir, sliding scale insulin, given additional bolus of normal saline as blood sugars in the 600s. No anion gap. We'll continue to monitor. Steroids have since been discontinued as were likely contributing. We'll closely monitor blood sugars. 4. Tobacco abuse counseled on continued cessation. DVT prophy: Heparin subcutaneous I discussed chest x-ray, labs, vitals, assessment and plan with patient, and they verbalize understanding and agreement. Update: at approx 4pm, nurse noted that pt appears flushed, more SOB, and urticaria under arms/abd. Pt received Solu-Medrol, Benadryl, nebs. Vitals stable. On 3L NC. No conversational dyspnea, no acute distress. Airway patent. BS 500-600 earlier in the day. Will transfer to ICU for insulin drip, continued Solu-Medrol, Benadryl, nebs. ENT Dr. Mcfadden consulted and will see pt in ICU. Dr. Mustafa updated. VS,Fishbone, I+O VS, Fishbone, I+O Laboratory Tests 06/03/18 06:19 Red Blood Count 5.57, Mean Corpuscular Volume 90.5, Mean Corpuscular Hemoglobin 30.9, Mean Corpuscular Hemoglobin Concent 34.1, Red Cell Distribution Width 12.3, Calcium Level 8.0 L 06/03/18 13:49 Red Blood Count 5.53, Mean Corpuscular Volume 90.2, Mean Corpuscular Hemoglobin 30.9, Mean Corpuscular Hemoglobin Concent 34.3, Red Cell Distribution Width 12.4, Calcium Level 8.2 L Vital Signs Date Time Temp Pulse Resp B/P (MAP) Pulse Ox O2 Delivery O2 Flow Rate FiO2 06/03/18 14:00 97.4 82 18 141/76 (97) 90 3.0 06/03/18 01:22 Nasal Cannula 06/02/18 21:46 24 I&O- Last 24 Hours up to 6 AM 06/03/18 05:59 Intake Total 1260 ml Output Total 500 ml Balance 760 ml PEEWEE CALHOUN MD Jun 03, 2018 16:04
[2018-06-03] MEDS ORDERED: HumuLIN R (REGULAR) INSULIN (NovoLIN R) **100U/ML** PER UNIT IV STA (16:15)
[2018-06-03] MEDS: diphenhydrAMINE INJ 50MG/ML VIAL (J1200) IV PRN ×2 (16:25→23:10)
[2018-06-03] MEDS ORDERED: methylPREDNISolone INJ 125 MG/2 ML VIAL (J2930) IV STA (16:25)
[2018-06-03] MEDS ORDERED: methylPREDNISolone INJ 125 MG/2 ML VIAL (J2930) As Ordered ONE (16:27)
[2018-06-03] MEDS ORDERED: IPRATROPIUM 0.5MG/ALBUTEROL 2.5MG INH SOL UD 3ML (DUONEB)(J7620) NEB ONE (17:00)
--- NOTE | 2018-06-03 17:22 | CR ---
DATE OF CONSULTATION: 06/03/2018 CHIEF COMPLAINT: Asked by Dr. Dr. Venegas to evaluate Mr. Arriaza for unexplained hypoxemia. HISTORY OF PRESENTING ILLNESS: Mr. Arriaza is a 63-year-old white male who presented to the emergency department yesterday with complaints of a sore throat, swollen tongue and swollen lips, as well as shortness of breath. This occurred rather abruptly in the morning. He was having his coffee and had approximately two sips when his symptoms started, and he sought medical assistance. He always has milk and a sweetener in his coffee and that was not different. I believe he had taken two pills before them, which were medications he has been on for years. He is not on an angiotensin-converting enzyme (SERGEI) inhibitor. He is not taking any [id number] medications. He came to the emergency department where he was evaluated and treated with diphenhydramine, epinephrine, albuterol nebulization, Atrovent nebulization, famotidine, and methylprednisolone. He also was given a dosage of azithromycin. His symptoms of angioedema resolved relatively quickly, but he still had ongoing hypoxemia requiring a few liters of oxygen. I was contacted because of unexplained hypoxemia. He was also found to have acute kidney injury with a creatinine of 1.98 (his baseline is supposed to be less than 1). A CBC showed a hemoglobin of 19.9 and hematocrit of 58.3. He had no known obstructive lung disease, but he was treated as if he may have one overnight and rehydrated. This morning, Mr. Arriaza is feeling better. He tells me that he has been feeling unwell for perhaps a little over a month. In fact, he quit smoking 8 days ago because of not feeling well and not because of an acute illness. He has no known ill contacts. No fevers, chills, or drenching night sweats. He does note dyspnea on exertion and has noted that for "quite awhile." On a good day, he can walk "quite awhile" and is actually limited by his back. He cannot climb a flight of 10 steps, again because of his back. He also has felt that for the past month or so that he has to speak in short sentences because of shortness of breath. However, for slightly over a month, he has also had chest pressure with exertion. He has had a cough that has gone on for at least at month. It is typically productive of bearden sputum. For the past 2 days, it has been whitish sputum. Yesterday, he noted that he "spit" after coughing and the "spit' had slight blood in it. No chest pain. He has intermittent postnasal drip. No orthopnea, though he feels he breathes better lying on his side. He has been experiencing paroxysmal nocturnal dyspnea (PND) for quite some time, at least one time per night. No lower extremity edema or history of deep vein thrombosis (DVT). No gastroesophageal reflux disease (GERD) symptoms. No previous diagnosis of bronchitis or pneumonia. There has not been concern in the past that he may have asthma. As an outpatient, he is not on any pulmonary directed medications. He has been referred for a sleep evaluation. He tells me he has not completed the paperwork as he has not felt well. PAST MEDICAL HISTORY: 1. Diabetes mellitus, type 2. 2. Hypertension. 3. Dyslipidemia. 4. Status post back surgery. 5. Status post toe surgery. 6. Status post left elbow and left shoulder surgery. 7. Status post left carpal tunnel surgery. 8. Status post left knee surgery. 9. Tobacco usage, cessation just prior to admission. MEDICATIONS ON ADMISSION: - glipizide 10 mg by mouth daily - losartan 100 mg by mouth daily - potassium 10 mEq twice a day - tizanidine 4 mg three times a day as needed - amlodipine 10 mg by mouth daily - aspirin 81 mg by mouth daily - Lipitor 40 mg by mouth nightly - bupropion 150 mg by mouth twice a day - chlorthalidone 25 mg by mouth daily - vitamin D 1000 mg by mouth daily - dicyclomine 10 mg by mouth before meals and at bedtime - Lyrica 100 mg by mouth three times a day ALLERGIES: No known drug allergies. SOCIAL HISTORY: Mr. Arriaza is a smoker, having started at age 15 to 16. He quit 8 days ago. For many of those years, he smoked 2 to 2-1/2 packs per day, giving him likely close to 100 or slightly above 100 pack-year history. He currently drinks approximately a 12-pack of beer per week. He is not working. 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 He does not believe he has been exposed to pulmonary toxins, such as dust, gas, fumes, or asbestos. He lives with his . He has four children, and his daughter is his healthcare proxy. They have a cat as a pet. [place] been out to the [place] No significant travel history. FAMILY HISTORY: No family history of angioedema. His brother and father have both been diagnosed with "asthma." Both were smokers, so I am not certain that is the true diagnosis. No other family history of lung disease. REVIEW OF SYSTEMS: Per history of the present illness. Remainder of pertinent review of systems are negative. PHYSICAL EXAMINATION: General: Mr. Arriaza is lying in bed, speaking in short sentences. He can move relatively easily to the sitting position. Occasional cough during the evaluation. Vital Signs: Temperature 98.3, pulse 88, respiratory rate 18, blood pressure 135/73 with a mean arterial pressure (MAP) of 93, SpO2 of 91% on an FiO2 of 3 liters. HEENT: Anicteric, pupils equal and reactive to light and accommodation. Nares: Patent bilaterally. Moist mucosa. Oropharynx: Edentulate, clear, Mallampati III. Face is normal. Neck: Supple, without apparent jugular venous distention (JVD), without thyromegaly or masses. Trachea is midline. Lymphs: Without cervical or supraclavicular lymphadenopathy. Chest: Normal shape. Lungs: Faint expiratory wheezes on tidal excursion. No rhonchi or crackles. Diffuse end expiratory wheezes noted on forced maneuver. Normal to mildly prolonged expiratory phase on tidal excursion with accentuation on forced maneuver. No accessory muscle usage or retractions. Normal percussion on palpation. Cardiovascular: Regular rate and rhythm with a normal S1, S2, no murmur, rub, or gallop appreciated. Abdomen: Obese, soft, no hepatosplenomegaly or masses appreciated and exam limited by body habitus. Extremities: Without clubbing, cyanosis, or edema. No calf tenderness. Palpable pedal pulses bilaterally. LABORATORY DATA: CBC on admission showed a hemoglobin of 19.9 and a hematocrit of 58.3, platelet count 157,000, white blood cell count 8900 with a differential of 75% neutrophils, 16% lymphocytes, and 7% monocytes. Today, his CBC shows a hemoglobin of 17.2, hematocrit 50.4, platelet count 161,000, and white blood cell count 6600. Chemistries today show sodium 134, potassium 3.9, chloride 99, bicarbonate 26, anion gap 9, BUN 42, creatinine 1.6, glucose 590, calcium 8.0. Additional labs on admission included a total bilirubin of 0.7, AST 42, ALT 41, alkaline phosphatase 93, total protein 7.4, albumin 3.1. Complement C4 is 70. Functional C1 esterase inhibitor and nonfunctional C1 esterase inhibitor are pending. I reviewed his chest x-ray as well as the report from 06/02/2018. That x-ray showed normal appearing cardiac silhouette and pulmonary vascular shadows. There was mild increased interstitial markings. No consolidated regions. Mild hyperinflation. IMPRESSION: 1. Hypoxemia. Based on his hemoglobin and hematocrit, I suspect that he has chronic hypoxemia. While both are technically normal today after rehydration, they are both higher than would typically see in a person with chronic disease. I am concerned regarding possible emphysema, untreated obstructive sleep apnea and/or pulmonary hypertension. He is appropriately replaced on oxygen at the present time, but, again, I feel this is more likely chronic rather than related to an acute illness. 2. Dyspnea on exertion. Again, I suspect that this may be multifactorial. Certainly some of his dyspnea is related to the increased work of breathing associated with pain and decreased mobility, as well as obesity and deconditioning. He has risk factors for chronic obstructive pulmonary disease (COPD) and may have that entity. He is also complaining of chest pressure with activity and cardiac diseases are in the differential. Finally, if he has untreated obstructive sleep apnea, pulmonary hypertension would be in the differential as well. 3. Diabetes mellitus. 4. Hypertension. 5. Angioedema on presentation. He does not have findings of that at this time. 6. Significant tobacco usage, recent cessation, high risk for relapse. RECOMMENDATIONS: 1. At this time, he is not having COPD exacerbation, and I will stop his systemic steroids as it is making it more difficult to control his blood sugars. 2. We will obtain bedside spirometry. If he has an obstructive component, will start him on an LABA, LAMA, and IC. 3. In the interim, would continue on DuoNebs as you are doing with as needed bronchodilator. 4. He should continue to pursue a formal obstructive sleep apnea evaluation as an outpatient. 5. We will obtain a chest CT scan given his prolonged cough and dyspnea on exertion, in addition to his prolonged smoking history (he would have been a candidate for lung cancer screening program if we did not have a more acute need for a CT). 6. We will obtain an echocardiogram to evaluate both left and right-sided function. 7. Consideration should be given for a cardiac evaluation as he likely needs a stress test of some sort at some time in the near future. 8. We will obtain an arterial blood gas. I see one in the order, but I do not see a result and it would be helpful to see what his true acid-base status is, as well as his pCO2 and pO2. Thank you for this consult and will continue to follow with you. NATALIA
[2018-06-03 17:23] LABS: HEMATOCRIT 46.9 % (42.0-52.0); HEMOGLOBIN 16.5 g/dl (13.5-17.5); MEAN CORPUSCULAR HEMOGLOBIN 31.7 pg (27.0-33.0); MEAN CORPUSCULAR HGB CONC 35.2 g/dl (32.0-36.5); PLATELET COUNT, AUTOMATED 158 10^3/uL (150-450); RED BLOOD COUNT 5.21 10^6/uL (4.30-6.10); WHITE BLOOD COUNT 8.7 10^3/uL (4.0-10.0)
[2018-06-03] MEDS: INSULIN HUMAN REGULAR 100 UNITS in NS 99 ML IV SCH (17:49)
[2018-06-03] MEDS: INSULIN IV RATE CHANGE DOCUMENTATION ML/HR XX SCH ×4 (17:50→23:26)
[2018-06-03 18:09] LABS: ATYPICAL LYMPH 4 % (0-5); HYPERSEGMENTED POLYS 1+; LYMPHOCYTES 14 % (16-52); MONOCYTES 5 % (0-8); NEUTROPHILS 77 % (35-75)
[2018-06-03 18:10] LABS: PLATELET ESTIMATE DECREASED (NORMAL)
[2018-06-03] MEDS: MOXIFLOXACIN HCL 400 MG in APPROPRIATE DILUENT 1 EA IV SCH (18:30)
--- NOTE | 2018-06-03 18:59 | HPE ---
DATE OF ADMISSION: 06/02/2018 He is a 63-year-old gentleman who presents with a problem of shortness of breath. He has difficulty breathing. He feels a constriction in his throat. There was a concern whether he had angioedema. He is a smoker. He has a history of diabetes, hypertension. He has a questionable history of sleep apnea. He has no difficulty with swallowing. He has a history of chronic obstructive lung disease. Examination shows the patient is alert and oriented, and he is sitting upright in the bed. He has oxygen by nasal prongs. He does not have an inspiratory stridor. Examination of the nose, nasopharynx, oropharynx, hypopharynx, and larynx shows that his epiglottis looks normal. Aryepiglottic folds, supraglottic area, cords, and subglottic area all look normal. His tongue was of normal size. He was edentulous. IMPRESSION: I think the patient's airway problems are related to his lungs, pneumonia, and chronic obstructive lung disease.
[2018-06-03] MEDS: ATORVASTATIN 20 MG TAB PO SCH (20:51)
--- NOTE | 2018-06-03 20:51 | ECHO ---
DATE OF PROCEDURE: 06/03/2018 REFERRING PHYSICIAN: Dr. Ha INDICATION: Dyspnea. Height 165 cm, weight 98 kg. DIMENSIONS: IVS: 1.2 LV: 4.2 LVPW: 1.2 LA: 3.6 Aorta: 3.8 IVC: 2.8 Left atrial volume index: 31 Inferior vena cava: 2.8 Mitral E wave velocity: 81 A-wave: 86 E prime septal: 7.7 E prime lateral: 9.5 FINDINGS: The study is of limited technical quality corresponding to patient's body habitus. Left ventricle is normal size, mild left ventricular hypertrophy (LVH) is present. Estimated LVEF 65-70%. Right ventricle does not appear grossly enlarged. Left atrium is mildly enlarged. Right atrium appears grossly normal. Aortic, mitral and tricuspid valves appear normal. Pulmonic valve was not seen. No pericardial effusion is noted. Inferior vena cava is dilated, and there is no appreciable collapse with respiration, indicative of very high central venous pressure. Aortic root is normal. Aortic arch and abdominal aorta were not well seen. Doppler interrogation of aortic valve reveals no stenosis or insufficiency. There is also functionally competent mitral valve. Trace tricuspid insufficiency seen. Calculated pulmonary artery pressure is at minimum in 40s, which would correspond to moderate pulmonary hypertension. Mitral inflow pattern and tissue Doppler imaging of mitral annulus revealed grade 1 diastolic dysfunction. CONCLUSIONS: 1. Study is of fair technical quality. 2. Normal left ventricular (LV) size with mild LVH and preserved LV systolic function. Grade 1 diastolic dysfunction. 3. No significant valvular disease. 4. High central venous pressure. 5. At least moderate pulmonary hypertension. COMMENT: Subacute bacterial endocarditis (SBE) prophylaxis is not recommended.
[2018-06-03] MEDS: tiZANidine 4 MG TAB PO PRN (20:54)
[2018-06-03] MEDS: methylPREDNISolone INJ 125 MG/2 ML VIAL (J2930) IV SCH (23:10)
[2018-06-03] MEDS: ACETAMINOPHEN TAB 650MG DOSE (2X325MG) PO PRN (23:22)
[2018-06-04] VITALS: BP 140/72
[2018-06-04] MEDS: INSULIN IV RATE CHANGE DOCUMENTATION ML/HR XX SCH ×10 (00:15→21:59)
[2018-06-04 04:00] VITALS: BP 122/68
[2018-06-04] MEDS: BENZONATATE 100 MG CAP PO PRN ×3 (04:06→20:44)
[2018-06-04] MEDS: ACETAMINOPHEN TAB 650MG DOSE (2X325MG) PO PRN ×2 (04:07→14:31)
[2018-06-04] MEDS: IPRATROPIUM 0.5MG/ALBUTEROL 2.5MG INH SOL UD 3ML (DUONEB)(J7620) NEB SCH ×6 (04:20→23:46)
[2018-06-04] MEDS: INSULIN HUMAN REGULAR 100 UNITS in NS 99 ML IV SCH ×4 (04:20→23:58)
[2018-06-04] MEDS: methylPREDNISolone INJ 125 MG/2 ML VIAL (J2930) IV SCH ×4 (04:50→22:02)
[2018-06-04] MEDS: diphenhydrAMINE INJ 50MG/ML VIAL (J1200) IV PRN (04:50)
[2018-06-04 05:05] LABS: HEMATOCRIT 47.4 % (42.0-52.0); HEMOGLOBIN 16.2 g/dl (13.5-17.5); MEAN CORPUSCULAR HEMOGLOBIN 30.7 pg (27.0-33.0); MEAN CORPUSCULAR HGB CONC 34.2 g/dl (32.0-36.5); MEAN CORPUSCULAR VOLUME 89.8 fl (80.0-96.0); PLATELET COUNT, AUTOMATED 177 10^3/uL (150-450); RED BLOOD COUNT 5.28 10^6/uL (4.30-6.10)
[2018-06-04 05:30] LABS: BLOOD UREA NITROGEN 36 MG/DL (7-18); CALCIUM LEVEL 7.8 MG/DL (8.8-10.2); CARBON DIOXIDE LEVEL 24 MEQ/L (21-32); CHLORIDE LEVEL 104 MEQ/L (98-107); CREATININE FOR GFR 1.11 MG/DL (0.70-1.30); GLOMERULAR FILTRATION RATE > 60.0 (>49); GLUCOSE, FASTING 272 MG/DL (70-100); POTASSIUM SERUM 3.5 MEQ/L (3.5-5.1); SODIUM LEVEL 137 MEQ/L (136-145)
[2018-06-04 08:00] VITALS: BP 143/65
[2018-06-04] MEDS: ADVAIR HFA 230/21MCG INHALER INH SCH ×2 (08:00→21:07)
[2018-06-04] MEDS: PREGABALIN 100 MG CAP (LYRICA) PO SCH ×3 (08:45→20:43)
[2018-06-04] MEDS: buPROPion **SR TABLET** (ZYBAN) 150MG PO SCH ×2 (08:45→20:43)
[2018-06-04] MEDS: DICYCLOMINE 10 MG CAP PO SCH ×4 (08:45→20:43)
[2018-06-04] MEDS: VITAMIN D 1,000 INTERNATIONAL UNITS TABLET PO SCH (08:51)
[2018-06-04] MEDS: ASPIRIN 81 MG ENTERIC TAB PO SCH (08:51)
[2018-06-04] MEDS: amLODIPine 10 MG TAB PO SCH (08:51)
[2018-06-04] MEDS ORDERED: diphenhydrAMINE INJ 50MG/ML VIAL (J1200) IV PRN (09:30)
[2018-06-04] MEDS ORDERED: diphenhydrAMINE INJ 50MG/ML VIAL (J1200) IV ONE (09:30)
[2018-06-04] MEDS: NICOTINE 21MG/24HR 1 EA TRANSDERMAL TD SCH (09:47)
[2018-06-04 12:00] VITALS: BP 150/72
[2018-06-04] MEDS: NS 1,000 ML IV SCH (12:21)
--- NOTE | 2018-06-04 13:23 | REP ---
RENAL ULTRASOUND: HISTORY: Acute kidney injury. COMPARISON: 07/02/2017. The kidneys are normal in echogenicity. The right kidney measures 6.1 cm in transverse by 5 cm in AP by 12.9 cm in cephalocaudal dimensions. The left kidney measures 5.6 cm in transverse by 6.3 cm in AP by 12.9 cm in cephalocaudal dimensions. There is no hydronephrosis or mass. A 1.7 cm septated cyst is present in the inferior right lobe of the liver. There are no filling defects in the urinary bladder. The prostate gland is enlarged measuring 29.1 cubic centimeters. IMPRESSION: 1. Normal renal ultrasound. 2. 1.7 cm liver cyst. 3. Enlarged prostate gland. Electronically Signed by Ernesto Desouza MD 06/04/2018 01:26 P
[2018-06-04 14:17] LABS: C1 ESTER INHIB. NON FUNCTIONAL 46 mg/dL (21-39); C1 ESTERASE INHIB. FUNCTIONAL > 109 (.)
[2018-06-04] MEDS: tiZANidine 4 MG TAB PO PRN (14:31)
[2018-06-04] MEDS: MOM 30ML SUSPENSION UDC PO PRN (14:31)
[2018-06-04] MEDS: DOCUSATE SODIUM 100 MG CAP PO PRN (14:32)
--- NOTE | 2018-06-04 15:38 | IPNPDOC ---
Text Note Date of Service The patient was seen on 06/04/18. NOTE Subjective: Dyspnea improving. Laryngoscopy by Dr. Mcfadden unremarkable yesterday. No CP/palpitations. Rash under arms, on abd improved. Objective: Vitals: (see below) General: No acute distress, laying comfortably in bed. HEENT: Moist mucous membranes. Neck: No JVD or lymphadenopathy. No stridor. Cardiac: RRR, No murmurs Pulm: Mild expiratory wheezing b/l. Minimal crackles at the bases. No use of accessory muscles. Abd: NT/ND + BS Ext: No edema or cyanosis Labs (see below) Images: CT chest on 06/03/18 Impression: There are focal patchy irregular densities in the right upper lobe and right lower lobe, nonspecific, subsegmental infiltrates versus poorly defined nodules. Follow-up to complete resolution is recommended. There are no pleural effusions. No adenopathy. The main pulmonary trunk is upper normal transverse diameter size. Assessment/Plan 1. Hypoxia/Dyspnea likely multifactorial, with the patient likely having underlying COPD. Continue nebs. Appreciate Dr. Ha's input. Pt presented with angioedema on admission, received Solu-Medrol, epi, Benadryl. Patient does not have stridor at this time. Laryngoscopy by Dr. Mcfadden unremarkable. Status post Solu-Medrol. Feeling much better, however is now back to his baseline. Stopped smoking this he became ill. Will need close outpatient follow-up with pulmonary. We will await further recommendations by pulmonary due to the patient's abnormal CAT scan. 2. Acute kidney injury likely secondary to the patient's diuretics as well as ARB, which have since been discontinued. Continue IV fluids. Renal function improving. We'll also send patient for renal ultrasound. 3. Uncontrolled Diabetes mellitus we will hold by mouth meds. s/p Levemir, sliding scale insulin, given additional bolus of normal saline as blood sugars in the 600s. No anion gap. We'll continue to monitor. In insulin drip. 4. Tobacco abuse counseled on continued cessation. DVT prophy: Heparin subcutaneous I discussed chest x-ray, labs, vitals, assessment and plan with patient, and they verbalize understanding and agreement. VS,Lemuelbone, I+O VS, Fishbone, I+O Laboratory Tests 06/03/18 17:13 Red Blood Count 5.21, Mean Corpuscular Volume 90.0, Mean Corpuscular Hemoglobin 31.7, Mean Corpuscular Hemoglobin Concent 35.2, Red Cell Distribution Width 12.1 06/04/18 04:47 Red Blood Count 5.28, Mean Corpuscular Volume 89.8, Mean Corpuscular Hemoglobin 30.7, Mean Corpuscular Hemoglobin Concent 34.2, Red Cell Distribution Width 12.2, Calcium Level 7.8 L Vital Signs Date Time Temp Pulse Resp B/P (MAP) Pulse Ox O2 Delivery O2 Flow Rate FiO2 06/04/18 12:00 98.0 84 21 150/72 (98) 93 1.0 06/03/18 01:22 Nasal Cannula 06/02/18 21:46 24 I&O- Last 24 Hours up to 6 AM 06/04/18 06:00 Intake Total 3945 ml Output Total 600 ml Balance 3345 ml PEEWEE CALHOUN MD Jun 04, 2018 15:38
[2018-06-04 16:00] VITALS: BP 138/69
[2018-06-04] MEDS: MOXIFLOXACIN HCL 400 MG in APPROPRIATE DILUENT 1 EA IV SCH (17:01)
[2018-06-04 20:00] VITALS: BP 137/73
[2018-06-04] MEDS: ATORVASTATIN 20 MG TAB PO SCH (20:44)
[2018-06-05] VITALS: BP 143/66
[2018-06-05] MEDS: tiZANidine 4 MG TAB PO PRN ×3 (00:07→21:41)
[2018-06-05] MEDS: NS 1,000 ML IV SCH (00:40)
[2018-06-05] MEDS: INSULIN IV RATE CHANGE DOCUMENTATION ML/HR XX SCH ×4 (02:09→09:10)
[2018-06-05 03:09] LABS: BLOOD UREA NITROGEN 30 MG/DL (7-18); CALCIUM LEVEL 7.8 MG/DL (8.8-10.2); CARBON DIOXIDE LEVEL 27 MEQ/L (21-32); CHLORIDE LEVEL 110 MEQ/L (98-107); CREATININE FOR GFR 0.76 MG/DL (0.70-1.30); GLOMERULAR FILTRATION RATE > 60.0 (>49); GLUCOSE, FASTING 69 MG/DL (70-100); MAGNESIUM LEVEL 2.7 MG/DL (1.8-2.4); POTASSIUM SERUM 3.5 MEQ/L (3.5-5.1); SODIUM LEVEL 144 MEQ/L (136-145)
[2018-06-05 04:00] VITALS: BP 145/71
[2018-06-05] MEDS: IPRATROPIUM 0.5MG/ALBUTEROL 2.5MG INH SOL UD 3ML (DUONEB)(J7620) NEB SCH ×5 (04:00→20:08)
[2018-06-05] MEDS: methylPREDNISolone INJ 125 MG/2 ML VIAL (J2930) IV SCH (05:41)
[2018-06-05 06:52] LABS: BLOOD UREA NITROGEN 31 MG/DL (7-18); CALCIUM LEVEL 7.4 MG/DL (8.8-10.2); CARBON DIOXIDE LEVEL 23 MEQ/L (21-32); CHLORIDE LEVEL 109 MEQ/L (98-107); CREATININE FOR GFR 0.77 MG/DL (0.70-1.30); GLOMERULAR FILTRATION RATE > 60.0 (>49); GLUCOSE, FASTING 205 MG/DL (70-100); MAGNESIUM LEVEL 2.5 MG/DL (1.8-2.4); POTASSIUM SERUM 3.7 MEQ/L (3.5-5.1); SODIUM LEVEL 138 MEQ/L (136-145)
[2018-06-05] MEDS: DICYCLOMINE 10 MG CAP PO SCH ×4 (07:30→21:00)
[2018-06-05 08:00] VITALS: BP 149/74
[2018-06-05] MEDS: ADVAIR HFA 230/21MCG INHALER INH SCH ×2 (08:00→20:00)
[2018-06-05] MEDS: buPROPion **SR TABLET** (ZYBAN) 150MG PO SCH ×2 (08:18→21:41)
[2018-06-05] MEDS: guaiFENesin ER 600 MG TAB PO SCH ×2 (08:19→21:41)
[2018-06-05] MEDS: PREGABALIN 100 MG CAP (LYRICA) PO SCH ×3 (08:19→21:41)
[2018-06-05] MEDS: amLODIPine 10 MG TAB PO SCH (08:19)
[2018-06-05] MEDS: ASPIRIN 81 MG ENTERIC TAB PO SCH (08:19)
[2018-06-05] MEDS: VITAMIN D 1,000 INTERNATIONAL UNITS TABLET PO SCH (08:19)
[2018-06-05 08:49] LABS: C REACTIVE PROTEIN QUANTITATIV 1.81 MG/DL (0.00-0.30)
[2018-06-05] MEDS: NICOTINE 21MG/24HR 1 EA TRANSDERMAL TD SCH (09:00)
[2018-06-05] MEDS ORDERED: LEVEMIR (INSULIN DETEMIR) 1 UNITS/0.01ML SC SCH (09:00)
[2018-06-05] MEDS: **hydrALAZINE HCL** 25 MG TAB PO SCH ×2 (09:40→17:59)
[2018-06-05] MEDS: TIOTROPIUM INHALER/CAPSULE (SPIRIVA) INH SCH (11:53)
[2018-06-05 12:00] VITALS: BP 148/70
[2018-06-05] MEDS ORDERED: POLYVINYL ALCOHOL OPHTH SOLN 15 ML(LIQUITEARS) OU PRN (12:30)
[2018-06-05] MEDS ORDERED: LEVEMIR (INSULIN DETEMIR) 1 UNITS/0.01ML SC ONE (12:30)
[2018-06-05] MEDS: HumaLOG INSULIN (NovoLOG) PER UNIT SC SCH ×3 (12:33→21:41)
[2018-06-05] MEDS: BENZONATATE 100 MG CAP PO PRN ×2 (12:42→21:41)
--- NOTE | 2018-06-05 13:36 | IPNPDOC ---
Text Note Date of Service The patient was seen on 06/05/18. NOTE Subjective: Patient's dyspnea is improving. Denies any chest pain palpitations. Still has a nonproductive cough. Objective: Vitals: (see below) General: No acute distress, laying comfortably in bed. HEENT: Moist mucous membranes. Neck: No JVD or lymphadenopathy. No stridor. Cardiac: RRR, No murmurs Pulm: Mild expiratory wheezing b/l improving. Minimal crackles at the bases. No use of accessory muscles. Abd: NT/ND + BS Ext: No edema or cyanosis Labs (see below) Images: CT chest on 06/03/18 Impression: There are focal patchy irregular densities in the right upper lobe and right lower lobe, nonspecific, subsegmental infiltrates versus poorly defined nodules. Follow-up to complete resolution is recommended. There are no pleural effusions. No adenopathy. The main pulmonary trunk is upper normal transverse diameter size. Assessment/Plan 1. Hypoxia/Dyspnea likely multifactorial, with the patient likely having underlying COPD. Continue nebs. Appreciate Dr. Ha's input. Pt presented with angioedema on admission, received Solu-Medrol, epi, Benadryl. Patient does not have stridor at this time. Laryngoscopy by Dr. Mcfadden unremarkable. Feeling much better, however is now back to his baseline. Stopped smoking this he became ill. Will need close outpatient follow-up with pulmonary. Solu-Medrol decreased. 2. Acute kidney injury likely secondary to the patient's diuretics as well as ARB, which have since been discontinued. Continue IV fluids. Renal function improving. We'll also send patient for renal ultrasound. 3. Uncontrolled Diabetes mellitus we will hold by mouth meds. s/p Levemir, sliding scale insulin, given additional bolus of normal saline as blood sugars in the 600s. No anion gap. We'll continue to monitor. Status post insulin drip. Transitioned to Levemir, SSI. 4. Tobacco abuse counseled on continued cessation. DVT prophy: SCDs I discussed labs, vitals, assessment and plan with patient, who verbalize understanding and agreement. VS,Fishbone, I+O VS, Fishbone, I+O Laboratory Tests 06/05/18 02:36 Calcium Level 7.8 L 06/05/18 06:23 Calcium Level 7.4 L Vital Signs Date Time Temp Pulse Resp B/P (MAP) Pulse Ox O2 Delivery O2 Flow Rate FiO2 06/05/18 12:00 98.0 99 18 148/70 (96) 94 2.0 06/04/18 23:46 Nasal Cannula 06/02/18 21:46 24 I&O- Last 24 Hours up to 6 AM 06/05/18 06:00 Intake Total 4049.5 ml Output Total 950 ml Balance 3099.5 ml PEEWEE CALHOUN MD Jun 05, 2018 13:36
[2018-06-05] MEDS: ACETAMINOPHEN TAB 650MG DOSE (2X325MG) PO PRN (13:50)
[2018-06-05 16:00] VITALS: BP 128/66
[2018-06-05] MEDS: methylPREDNISolone INJ 40 MG/1 ML VIAL (J2920) IV SCH (17:59)
[2018-06-05] MEDS: LEVEMIR (INSULIN DETEMIR) 1 UNITS/0.01ML SC SCH (18:01)
[2018-06-05] MEDS: MOXIFLOXACIN HCL 400 MG in APPROPRIATE DILUENT 1 EA IV SCH (18:02)
[2018-06-05 20:00] VITALS: BP 150/72
[2018-06-05] MEDS: ATORVASTATIN 20 MG TAB PO SCH (21:41)
[2018-06-06] VITALS: BP 137/70
[2018-06-06] MEDS: IPRATROPIUM 0.5MG/ALBUTEROL 2.5MG INH SOL UD 3ML (DUONEB)(J7620) NEB SCH ×7 (00:11→23:35)
[2018-06-06] MEDS: **hydrALAZINE HCL** 25 MG TAB PO SCH ×3 (02:43→17:27)
[2018-06-06 04:00] VITALS: BP 137/77
[2018-06-06 05:03] LABS: HEMATOCRIT 46.6 % (42.0-52.0); HEMOGLOBIN 15.8 g/dl (13.5-17.5); MEAN CORPUSCULAR HEMOGLOBIN 31.1 pg (27.0-33.0); MEAN CORPUSCULAR HGB CONC 33.9 g/dl (32.0-36.5); MEAN CORPUSCULAR VOLUME 91.7 fl (80.0-96.0); PLATELET COUNT, AUTOMATED 206 10^3/uL (150-450); RED BLOOD COUNT 5.08 10^6/uL (4.30-6.10); WHITE BLOOD COUNT 8.3 10^3/uL (4.0-10.0)
[2018-06-06 05:19] LABS: BLOOD UREA NITROGEN 31 MG/DL (7-18); CALCIUM LEVEL 8.1 MG/DL (8.8-10.2); CARBON DIOXIDE LEVEL 26 MEQ/L (21-32); CHLORIDE LEVEL 107 MEQ/L (98-107); CREATININE FOR GFR 0.95 MG/DL (0.70-1.30); GLOMERULAR FILTRATION RATE > 60.0 (>49); GLUCOSE, FASTING 305 MG/DL (70-100); POTASSIUM SERUM 4.3 MEQ/L (3.5-5.1); SODIUM LEVEL 141 MEQ/L (136-145)
[2018-06-06] MEDS: methylPREDNISolone INJ 40 MG/1 ML VIAL (J2920) IV SCH (05:55)
[2018-06-06] MEDS: DICYCLOMINE 10 MG CAP PO SCH ×4 (07:43→21:00)
[2018-06-06] MEDS: TIOTROPIUM INHALER/CAPSULE (SPIRIVA) INH SCH (07:57)
[2018-06-06] MEDS: ADVAIR HFA 230/21MCG INHALER INH SCH ×2 (07:57→20:00)
[2018-06-06 08:00] VITALS: BP 146/89
[2018-06-06] MEDS ORDERED: predniSONE 20 MG TAB PO SCH (09:00)
[2018-06-06] MEDS ORDERED: LEVEMIR (INSULIN DETEMIR) 1 UNITS/0.01ML SC SCH (09:00)
[2018-06-06] MEDS: PREGABALIN 100 MG CAP (LYRICA) PO SCH ×3 (09:03→21:58)
[2018-06-06] MEDS: guaiFENesin ER 600 MG TAB PO SCH ×2 (09:03→21:59)
[2018-06-06] MEDS: VITAMIN D 1,000 INTERNATIONAL UNITS TABLET PO SCH (09:03)
[2018-06-06] MEDS: ASPIRIN 81 MG ENTERIC TAB PO SCH (09:03)
[2018-06-06] MEDS: NICOTINE 21MG/24HR 1 EA TRANSDERMAL TD SCH (09:04)
[2018-06-06] MEDS: HumaLOG INSULIN (NovoLOG) PER UNIT SC SCH ×4 (09:05→22:02)
[2018-06-06] MEDS: buPROPion **SR TABLET** (ZYBAN) 150MG PO SCH ×2 (09:07→21:58)
[2018-06-06] MEDS: amLODIPine 10 MG TAB PO SCH (09:08)
--- NOTE | 2018-06-06 10:25 | IPNPDOC ---
Text Note Date of Service The patient was seen on 06/06/18. NOTE Subjective: Dyspnea is improving. Denies any chest pain palpitations. cough i mproved Objective: Vitals: (see below) General: No acute distress, laying comfortably in bed. HEENT: Moist mucous membranes. Neck: No JVD or lymphadenopathy. No stridor. Cardiac: RRR, No murmurs Pulm: Minimal expiratory wheezing b/l improving. Minimal crackles at the bases. No use of accessory muscles. Abd: NT/ND + BS Ext: No edema or cyanosis Labs (see below) Images: CT chest on 06/03/18 Impression: There are focal patchy irregular densities in the right upper lobe and right lower lobe, nonspecific, subsegmental infiltrates versus poorly defined nodules. Follow-up to complete resolution is recommended. There are no pleural effusions. No adenopathy. The main pulmonary trunk is upper normal transverse diameter size. Assessment/Plan 1. Hypoxia/Dyspnea likely multifactorial, with the patient likely having underlying COPD. Continue nebs. Appreciate Dr. Ha's input. Pt presented with angioedema on admission, received Solu-Medrol, epi, Benadryl. Patient does not have stridor at this time. Laryngoscopy by Dr. Mcfadden unremarkable. Feeling much better, however is now back to his baseline. Stopped smoking this he became ill. Will need close outpatient follow-up with pulmonary. Solu-Medrol changed to prednisone. 2. Acute kidney injury likely secondary to the patient's diuretics as well as ARB, which have since been discontinued. Continue IV fluids. Renal function improving. We'll also send patient for renal ultrasound. 3. Uncontrolled Diabetes mellitus we will hold by mouth meds. s/p Levemir, sliding scale insulin, given additional bolus of normal saline as blood sugars in the 600s. No anion gap. We'll continue to monitor. Status post insulin drip. Transitioned to Levemir, SSI. levemir dose increased. 4. Tobacco abuse counseled on continued cessation. DVT prophy: SCDs Downgrade to medsurg. I discussed labs, vitals, assessment and plan with patient, who verbalize understanding and agreement. VS,Fishbone, I+O VS, Fishbone, I+O Laboratory Tests 06/06/18 04:50 Red Blood Count 5.08, Mean Corpuscular Volume 91.7, Mean Corpuscular Hemoglobin 31.1, Mean Corpuscular Hemoglobin Concent 33.9, Red Cell Distribution Width 12 .9, Calcium Level 8.1 L Vital Signs Date Time Temp Pulse Resp B/P (MAP) Pulse Ox O2 Delivery O2 Flow Rate FiO2 06/06/18 09:04 146/89 06/06/18 08:00 2.0 06/06/18 08:00 97.6 88 24 91 06/05/18 20:09 Nasal Cannula 06/02/18 21:46 24 I&O- Last 24 Hours up to 6 AM 06/06/18 06:00 Intake Total 2499 ml Output Total 2350 ml Balance 149 ml PEEWEE CALHOUN MD Jun 06, 2018 10:25
[2018-06-06 12:00] VITALS: BP 150/72
[2018-06-06 14:00] VITALS: BP 150/95
[2018-06-06] MEDS: tiZANidine 4 MG TAB PO PRN (15:41)
[2018-06-06] MEDS: MOXIFLOXACIN HCL 400 MG in APPROPRIATE DILUENT 1 EA IV SCH (17:29)
[2018-06-06] MEDS: ATORVASTATIN 20 MG TAB PO SCH (21:58)
[2018-06-06] MEDS: tiZANidine 4 MG TAB PO SCH (21:58)
[2018-06-06] MEDS: BENZONATATE 100 MG CAP PO PRN (21:59)
[2018-06-06 22:00] VITALS: BP 123/79
[2018-06-06] MEDS: LEVEMIR (INSULIN DETEMIR) 1 UNITS/0.01ML SC SCH (22:00)
[2018-06-06] MEDS: MOM 30ML SUSPENSION UDC PO PRN (22:05)
[2018-06-06] MEDS: DOCUSATE SODIUM 100 MG CAP PO PRN (22:06)
[2018-06-07] MEDS: **hydrALAZINE HCL** 25 MG TAB PO SCH ×3 (02:09→17:08)
[2018-06-07] MEDS: IPRATROPIUM 0.5MG/ALBUTEROL 2.5MG INH SOL UD 3ML (DUONEB)(J7620) NEB SCH ×4 (04:00→23:11)
[2018-06-07 05:53] LABS: HEMATOCRIT 46.7 % (42.0-52.0); HEMOGLOBIN 15.4 g/dl (13.5-17.5); MEAN CORPUSCULAR HEMOGLOBIN 30.3 pg (27.0-33.0); MEAN CORPUSCULAR VOLUME 91.9 fl (80.0-96.0); PLATELET COUNT, AUTOMATED 213 10^3/uL (150-450); RED BLOOD COUNT 5.08 10^6/uL (4.30-6.10); WHITE BLOOD COUNT 6.7 10^3/uL (4.0-10.0)
[2018-06-07 06:00] VITALS: BP 138/80
[2018-06-07 06:00] LABS: BLOOD UREA NITROGEN 26 MG/DL (7-18); CALCIUM LEVEL 8.1 MG/DL (8.8-10.2); CARBON DIOXIDE LEVEL 29 MEQ/L (21-32); CHLORIDE LEVEL 108 MEQ/L (98-107); CREATININE FOR GFR 0.83 MG/DL (0.70-1.30); GLOMERULAR FILTRATION RATE > 60.0 (>49); GLUCOSE, FASTING 249 MG/DL (70-100); POTASSIUM SERUM 3.6 MEQ/L (3.5-5.1); SODIUM LEVEL 141 MEQ/L (136-145)
[2018-06-07] MEDS: DICYCLOMINE 10 MG CAP PO SCH ×4 (07:30→20:31)
[2018-06-07] MEDS ORDERED: methylPREDNISolone INJ 40 MG/1 ML VIAL (J2920) IV SCH (08:00)
[2018-06-07] MEDS ORDERED: FUROSEMIDE 40 MG/4 ML VIAL (J1940) IV ONE (08:00)
[2018-06-07] MEDS: HumaLOG INSULIN (NovoLOG) PER UNIT SC SCH ×4 (08:14→20:33)
[2018-06-07] MEDS: methylPREDNISolone INJ 40 MG/1 ML VIAL (J2920) IV SCH ×2 (08:14→19:49)
--- NOTE | 2018-06-07 08:16 | REP ---
Clinical: Shortness of breath . Comparison: 06/02/2018 . Findings: The mediastinum and cardiac silhouette are stable and within normal limits for portable technique. The lung chopra are clear without acute consolidation, effusion, or pneumothorax. Skeletal structures are intact. Impression: No acute cardiopulmonary process appreciated. Electronically Signed by Meir Grewal MD 06/07/2018 08:07 A
--- NOTE | 2018-06-07 09:16 | REP ---
Clinical: Bilateral lower extremity swelling and pain . Technique: Yanez scale and color Doppler evaluation using linear high frequency transducer. Findings: Ultrasound examination of the right and left lower extremity deep venous structures from the common femoral vein to the popliteal vein demonstrates normal compressibility flow and wave patterns in response to respiration and augmentation. There is no evidence for deep venous thrombosis. 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 Impression: No evidence for deep venous thrombosis bilateral lower extremities . Electronically Signed by Meir Grewal MD 06/07/2018 09:08 A
[2018-06-07] MEDS: ADVAIR HFA 230/21MCG INHALER INH SCH ×2 (09:52→23:11)
[2018-06-07] MEDS: TIOTROPIUM INHALER/CAPSULE (SPIRIVA) INH SCH (09:52)
[2018-06-07 10:00] VITALS: BP 159/74
[2018-06-07] MEDS: ENOXAPARIN 40 MG/0.4 ML SYRINGE (J1650) SC SCH (10:57)
[2018-06-07] MEDS: MOM 30ML SUSPENSION UDC PO PRN (10:58)
[2018-06-07] MEDS: NICOTINE 21MG/24HR 1 EA TRANSDERMAL TD SCH (10:59)
[2018-06-07] MEDS: LEVEMIR (INSULIN DETEMIR) 1 UNITS/0.01ML SC SCH ×2 (11:01→20:32)
[2018-06-07] MEDS: VITAMIN D 1,000 INTERNATIONAL UNITS TABLET PO SCH (11:02)
[2018-06-07] MEDS: tiZANidine 4 MG TAB PO SCH ×3 (11:02→20:32)
[2018-06-07] MEDS: guaiFENesin ER 600 MG TAB PO SCH ×2 (11:02→20:32)
[2018-06-07] MEDS: ASPIRIN 81 MG ENTERIC TAB PO SCH (11:03)
[2018-06-07] MEDS: PREGABALIN 100 MG CAP (LYRICA) PO SCH ×3 (11:04→20:31)
[2018-06-07] MEDS: amLODIPine 10 MG TAB PO SCH (11:05)
[2018-06-07] MEDS: buPROPion **SR TABLET** (ZYBAN) 150MG PO SCH ×2 (11:38→20:31)
[2018-06-07 12:14] LABS: FOLATE 11.9 NG/ML (>5.4)
[2018-06-07 13:34] VITALS: BP 132/65
--- NOTE | 2018-06-07 14:17 | IPNPDOC ---
Text Note Date of Service The patient was seen on 06/07/18. NOTE Subjective: Patient had increased Dyspnea this morning and a nonproductive co ugh.. Denies any chest pain/ palpitations. No nausea or vomiting. Objective: Vitals: (see below) General: No acute distress, laying comfortably in bed. HEENT: Moist mucous membranes. Neck: No JVD or lymphadenopathy. No stridor. Cardiac: RRR, No murmurs Pulm: Minimal expiratory wheezing b/l increased. Minimal crackles at the bases. No use of accessory muscles. Abd: NT/ND + BS Ext: 1+ pitting edema BLE. No cyanosis Labs (see below) Images: CT chest on 06/03/18 Impression: There are focal patchy irregular densities in the right upper lobe and right lower lobe, nonspecific, subsegmental infiltrates versus poorly defined nodules. Follow-up to complete resolution is recommended. There are no pleural effusions. No adenopathy. The main pulmonary trunk is upper normal transverse diameter size. Assessment/Plan 1. Hypoxia/Dyspnea likely multifactorial, with the patient likely having underlying COPD. Continue nebs. Appreciate Dr. Ha's input. Pt presented with angioedema on admission, received Solu-Medrol, epi, Benadryl. Patient does not have stridor at this time. Laryngoscopy by Dr. Mcfadden unremarkable. Feeling much better, however is now back to his baseline. Stopped smoking this he became ill. Will need close outpatient follow-up with pulmonary. Prednisone changed to Solu-Medrol. 2. Status post Acute kidney injury likely secondary to the patient's diuretics as well as ARB, which have since been discontinued. Continue IV fluids. Renal function improving. We'll also send patient for renal ultrasound. 3. Uncontrolled Diabetes mellitus we will hold by mouth meds. s/p Levemir, sliding scale insulin, given additional bolus of normal saline as blood sugars in the 600s. No anion gap. We'll continue to monitor. Status post insulin drip. Transitioned to Levemir, SSI. levemir dose increased. 4. Tobacco abuse counseled on continued cessation. 5. LE edema. Started on lasix prn. U/S negative for dvt. DVT prophy: Lovenox I discussed labs, vitals, assessment and plan with patient, who verbalize understanding and agreement. VS,Dayan, I+O VS, Fishbone, I+O Laboratory Tests 06/07/18 05:25 Red Blood Count 5.08, Mean Corpuscular Volume 91.9, Mean Corpuscular Hemoglobin 30.3, Mean Corpuscular Hemoglobin Concent 33.0, Red Cell Distribution Width 12.8, Calcium Level 8.1 L Vital Signs Date Time Temp Pulse Resp B/P (MAP) Pulse Ox O2 Delivery O2 Flow Rate FiO2 06/07/18 13:34 96.8 80 20 132/65 (87) 94 3.0 06/05/18 20:09 Nasal Cannula 06/02/18 21:46 24 I&O- Last 24 Hours up to 6 AM 06/07/18 06:00 Intake Total 2650 ml Output Total 0 ml Balance 2650 ml PEEWEE CALHOUN MD Jun 07, 2018 14:17
[2018-06-07] MEDS: BENZONATATE 100 MG CAP PO PRN (15:21)
[2018-06-07] MEDS: MOXIFLOXACIN 400 MG TAB PO SCH (16:37)
[2018-06-07 17:06] VITALS: BP 136/68
[2018-06-07] MEDS: ATORVASTATIN 20 MG TAB PO SCH (20:31)
[2018-06-07 22:00] VITALS: BP 144/75
[2018-06-08] MEDS: **hydrALAZINE HCL** 25 MG TAB PO SCH ×3 (02:21→18:24)
[2018-06-08] MEDS: IPRATROPIUM 0.5MG/ALBUTEROL 2.5MG INH SOL UD 3ML (DUONEB)(J7620) NEB SCH ×7 (04:00→23:43)
[2018-06-08 06:00] VITALS: BP 173/98
[2018-06-08] MEDS: MOXIFLOXACIN 400 MG TAB PO SCH (06:20)
[2018-06-08] MEDS: amLODIPine 10 MG TAB PO SCH (06:20)
[2018-06-08 06:25] LABS: HEMATOCRIT 46.9 % (42.0-52.0); HEMOGLOBIN 15.8 g/dl (13.5-17.5); MEAN CORPUSCULAR HEMOGLOBIN 30.7 pg (27.0-33.0); MEAN CORPUSCULAR HGB CONC 33.7 g/dl (32.0-36.5); MEAN CORPUSCULAR VOLUME 91.1 fl (80.0-96.0); PLATELET COUNT, AUTOMATED 237 10^3/uL (150-450); RED BLOOD COUNT 5.15 10^6/uL (4.30-6.10); WHITE BLOOD COUNT 8.1 10^3/uL (4.0-10.0)
[2018-06-08 06:38] VITALS: BP 143/81
[2018-06-08 06:48] LABS: BLOOD UREA NITROGEN 27 MG/DL (7-18); CALCIUM LEVEL 8.5 MG/DL (8.8-10.2); CARBON DIOXIDE LEVEL 28 MEQ/L (21-32); CHLORIDE LEVEL 104 MEQ/L (98-107); CREATININE FOR GFR 0.77 MG/DL (0.70-1.30); GLOMERULAR FILTRATION RATE > 60.0 (>49); GLUCOSE, FASTING 226 MG/DL (70-100); POTASSIUM SERUM 4.2 MEQ/L (3.5-5.1); SODIUM LEVEL 138 MEQ/L (136-145)
[2018-06-08] MEDS: ADVAIR HFA 230/21MCG INHALER INH SCH ×2 (07:08→19:57)
[2018-06-08] MEDS: TIOTROPIUM INHALER/CAPSULE (SPIRIVA) INH SCH (07:08)
[2018-06-08] MEDS: PREGABALIN 100 MG CAP (LYRICA) PO SCH ×3 (08:40→20:46)
[2018-06-08] MEDS: DICYCLOMINE 10 MG CAP PO SCH ×4 (08:40→20:38)
[2018-06-08] MEDS: buPROPion **SR TABLET** (ZYBAN) 150MG PO SCH ×2 (08:40→20:38)
[2018-06-08] MEDS: ASPIRIN 81 MG ENTERIC TAB PO SCH (08:40)
[2018-06-08] MEDS: ENOXAPARIN 40 MG/0.4 ML SYRINGE (J1650) SC SCH (08:41)
[2018-06-08] MEDS: NICOTINE 21MG/24HR 1 EA TRANSDERMAL TD SCH (08:41)
[2018-06-08] MEDS: methylPREDNISolone INJ 40 MG/1 ML VIAL (J2920) IV SCH ×2 (08:41→20:39)
[2018-06-08] MEDS: VITAMIN D 1,000 INTERNATIONAL UNITS TABLET PO SCH (08:41)
[2018-06-08] MEDS: guaiFENesin ER 600 MG TAB PO SCH ×2 (08:41→20:38)
[2018-06-08] MEDS: HumaLOG INSULIN (NovoLOG) PER UNIT SC SCH ×4 (08:42→21:04)
[2018-06-08] MEDS: LEVEMIR (INSULIN DETEMIR) 1 UNITS/0.01ML SC SCH ×2 (08:43→21:03)
[2018-06-08] MEDS: tiZANidine 4 MG TAB PO SCH ×3 (08:43→20:46)
[2018-06-08 09:20] VITALS: BP 151/83
[2018-06-08] MEDS: MOM 30ML SUSPENSION UDC PO PRN ×2 (11:10→16:31)
[2018-06-08 12:20] VITALS: BP 145/81
[2018-06-08] MEDS: DOCUSATE SODIUM 100 MG CAP PO PRN (12:51)
[2018-06-08] MEDS: ATORVASTATIN 20 MG TAB PO SCH (20:38)
--- NOTE | 2018-06-08 21:42 | IPN ---
DATE: 06/08/2018 The patient is seen and examined. Reported improved respirations. Denies any chest pain, pressure or discomfort. Denies any palpitations. No nausea. No vomiting. Afebrile. VITAL SIGNS: Temperature 97.7, pulse 74, respirations 18, blood pressure 145/81, pulse oximetry 92% on 2 liters nasal cannula. LABORATORY DATA: WBC 8.1, hemoglobin and hematocrit 15.8/46.9, platelets 237. Chemistry: Sodium 138, potassium 4.2, chloride 104, bicarbonate 28, BUN 27, creatinine 0.67. PHYSICAL EXAMINATION: GENERAL: The patient is alert, comfortable, in no acute distress. HEENT: Moist mucous membranes. CARDIAC: Regular. S1, S2. PULMONARY: Minimal wheeze. No crackles. ABDOMEN: Soft, nontender. EXTREMITIES: 1+ edema in bilateral lower extremities. ASSESSMENT AND PLAN: This is a 63-year-old male patient with underlying medical history of type 2 diabetes, hypertension, dyslipidemia, who presented to the hospital with shortness of breath and tongue swelling. 1. Hypoxic dyspnea, multifactorial, likely secondary to undiagnosed chronic obstructive pulmonary disease (COPD), possibly pulmonary artery hypertension as well. Pulmonology consulted. Will need outpatient sleep study and pulmonary function tests. Continue Spiriva, Advair. Smoking cessation counseling. Nicotine patch. Taper steroids. Nebulizer treatments. Continue Avelox for antibiotic. 2. Suspected angioedema. The patient was given epinephrine, Benadryl. ENT was consulted. Status post laryngoscopy that was unremarkable. The patient's ARB has been discontinued. 3. Acute kidney injury. ARB has been discontinued. Currently improved. Renal ultrasound appreciated. 4. Dyslipidemia. Continue statin. 5. Hypertension. Continue Norvasc, hydralazine. 6. Smoking. Counseling provided. Nicotine patch. 7. Uncontrolled diabetes. Likely secondary to steroid. Basal bolus insulin. Holding oral medications. We will get A1/c. Taper steroids. We will evaluate if the patient needs to be discharged on insulin as an outpatient. 8. Lower extremity edema. Improved with Lasix. Ultrasound negative for DVT. 9. Deep vein thrombosis (DVT) prophylaxis. Lovenox subcutaneously. DISPOSITION: Pending clinical improvement, physical therapy (PT), steroid taper.
[2018-06-08 22:00] VITALS: BP 141/74
[2018-06-09] MEDS: **hydrALAZINE HCL** 25 MG TAB PO SCH ×3 (02:19→18:13)
[2018-06-09] MEDS: IPRATROPIUM 0.5MG/ALBUTEROL 2.5MG INH SOL UD 3ML (DUONEB)(J7620) NEB SCH ×5 (03:59→20:07)
[2018-06-09] MEDS: MOXIFLOXACIN 400 MG TAB PO SCH (05:49)
[2018-06-09 06:00] VITALS: BP 138/82
[2018-06-09 06:41] LABS: HEMATOCRIT 48.2 % (42.0-52.0); HEMOGLOBIN 16.5 g/dl (13.5-17.5); MEAN CORPUSCULAR HEMOGLOBIN 31.2 pg (27.0-33.0); MEAN CORPUSCULAR HGB CONC 34.2 g/dl (32.0-36.5); MEAN CORPUSCULAR VOLUME 91.1 fl (80.0-96.0); PLATELET COUNT, AUTOMATED 256 10^3/uL (150-450); RED BLOOD COUNT 5.29 10^6/uL (4.30-6.10); WHITE BLOOD COUNT 8.8 10^3/uL (4.0-10.0)
[2018-06-09 07:17] LABS: BLOOD UREA NITROGEN 32 MG/DL (7-18); CARBON DIOXIDE LEVEL 30 MEQ/L (21-32); CHLORIDE LEVEL 101 MEQ/L (98-107); GLOMERULAR FILTRATION RATE > 60.0 (>49); GLUCOSE, FASTING 249 MG/DL (70-100); POTASSIUM SERUM 4.3 MEQ/L (3.5-5.1); SODIUM LEVEL 138 MEQ/L (136-145)
[2018-06-09] MEDS: TIOTROPIUM INHALER/CAPSULE (SPIRIVA) INH SCH (07:56)
[2018-06-09] MEDS: ADVAIR HFA 230/21MCG INHALER INH SCH ×2 (07:56→20:07)
[2018-06-09] MEDS: tiZANidine 4 MG TAB PO SCH ×3 (08:25→20:36)
[2018-06-09] MEDS: guaiFENesin ER 600 MG TAB PO SCH ×2 (08:25→20:36)
[2018-06-09] MEDS: ASPIRIN 81 MG ENTERIC TAB PO SCH (08:25)
[2018-06-09] MEDS: ENOXAPARIN 40 MG/0.4 ML SYRINGE (J1650) SC SCH (08:25)
[2018-06-09] MEDS: amLODIPine 10 MG TAB PO SCH (08:25)
[2018-06-09] MEDS: DICYCLOMINE 10 MG CAP PO SCH ×4 (08:25→20:36)
[2018-06-09] MEDS: VITAMIN D 1,000 INTERNATIONAL UNITS TABLET PO SCH (08:26)
[2018-06-09] MEDS: LEVEMIR (INSULIN DETEMIR) 1 UNITS/0.01ML SC SCH (08:26)
[2018-06-09] MEDS: NICOTINE 21MG/24HR 1 EA TRANSDERMAL TD SCH (08:26)
[2018-06-09] MEDS: HumaLOG INSULIN (NovoLOG) PER UNIT SC SCH ×4 (08:27→20:37)
[2018-06-09] MEDS: predniSONE 50 MG TAB PO SCH (08:29)
[2018-06-09] MEDS: PREGABALIN 100 MG CAP (LYRICA) PO SCH ×3 (08:29→20:36)
[2018-06-09] MEDS: buPROPion **SR TABLET** (ZYBAN) 150MG PO SCH ×2 (09:57→20:36)
[2018-06-09] MEDS: DOCUSATE SODIUM 100 MG CAP PO PRN (09:57)
[2018-06-09] MEDS: MOM 30ML SUSPENSION UDC PO PRN ×2 (09:57→12:59)
[2018-06-09] MEDS ORDERED: FUROSEMIDE 40 MG/4 ML VIAL (J1940) IV ONE (10:00)
[2018-06-09] MEDS ORDERED: TOUJ300I2 SC (12:34)
[2018-06-09] MEDS ORDERED: TIOT18INH INH (12:34)
[2018-06-09] MEDS ORDERED: ALCOPAD17 TOP (12:34)
[2018-06-09] MEDS ORDERED: AVEL1TAB3 PO (12:34)
[2018-06-09] MEDS ORDERED: ADVA230A INH (12:34)
[2018-06-09] MEDS ORDERED: HYDR25TA PO (12:34)
[2018-06-09] MEDS ORDERED: GLUC1TES2 XX (12:35)
[2018-06-09] MEDS ORDERED: PEN1MIS22 SC (12:35)
[2018-06-09] MEDS ORDERED: LANC30MI XX (12:35)
[2018-06-09] MEDS ORDERED: MUCI600T37 PO (12:37)
[2018-06-09] MEDS ORDERED: PRED10TA2 PO (12:37)
[2018-06-09] MEDS ORDERED: NICO21PAT TD (12:37)
[2018-06-09 14:00] VITALS: BP 138/78
--- NOTE | 2018-06-09 18:32 | IPNPDOC ---
Text Note Date of Service The patient was seen on 06/09/18. NOTE The patient is seen and examined. Reported improved respirations. Denies any chest pain, pressure or discomfort. Denies any palpitations. No nausea. No vomiting. Afebrile. PHYSICAL EXAMINATION: GENERAL: The patient is alert, comfortable, in no acute distress. HEENT: Moist mucous membranes. CARDIAC: Regular. S1, S2. PULMONARY: Minimal wheeze. No crackles. ABDOMEN: Soft, nontender. EXTREMITIES: 1+ edema in bilateral lower extremities. ASSESSMENT AND PLAN: This is a 63-year-old male patient with underlying medical history of type 2 diabetes, hypertension, dyslipidemia, who presented to the hospital with shortness of breath and tongue swelling. 1. Hypoxic dyspnea, multifactorial, likely secondary to undiagnosed chronic obstructive pulmonary disease (COPD), possibly pulmonary artery hypertension as well. Pulmonology consulted. Will need outpatient sleep study and pulmonary function tests. Continue Spiriva, Advair. Smoking cessation counseling. Nicotine patch. Taper steroids. Nebulizer treatments. Continue Avelox for antibiotic. 2. Suspected angioedema. The patient was given epinephrine, Benadryl. ENT was consulted. Status post laryngoscopy that was unremarkable. The patient's ARB has been discontinued. 3. Acute kidney injury. ARB has been discontinued. Currently improved. Renal ultrasound appreciated. 4. Dyslipidemia. Continue statin. 5. Hypertension. Continue Norvasc, hydralazine. 6. Smoking. Counseling provided. Nicotine patch. 7. Uncontrolled diabetes. Likely secondary to steroid. Basal bolus insulin. Holding oral medications. We will get A1/c. Taper steroids. insulin teaching 8. Lower extremity edema. Improved with Lasix. Ultrasound negative for DVT. 9. Deep vein thrombosis (DVT) prophylaxis. Lovenox subcutaneously. DISPOSITION: Pending clinical improvement, physical therapy (PT), steroid taper. insulin teaching, pfs for possible medication prior authorization VSDayan, I+O VS, Dayan, I+O Laboratory Tests 06/09/18 06:20 Red Blood Count 5.29, Mean Corpuscular Volume 91.1, Mean Corpuscular Hemoglobin 31.2, Mean Corpuscular Hemoglobin Concent 34.2, Red Cell Distribution Width 12.8, Calcium Level 9.0 Vital Signs Date Time Temp Pulse Resp B/P (MAP) Pulse Ox O2 Delivery O2 Flow Rate FiO2 06/09/18 18:13 138/78 06/09/18 14:00 97.6 83 20 95 06/09/18 06:00 2.0 06/05/18 20:09 Nasal Cannula I&O- Last 24 Hours up to 6 AM 06/09/18 06:00 Intake Total 1440 ml Output Total 1750 ml Balance -310 ml MARI HAWKINS MD Jun 09, 2018 18:32
[2018-06-09] MEDS: ATORVASTATIN 20 MG TAB PO SCH (20:36)
[2018-06-09] MEDS ORDERED: LEVEMIR (INSULIN DETEMIR) 1 UNITS/0.01ML SC SCH (21:00)
[2018-06-09 22:00] VITALS: BP 142/87
[2018-06-10] MEDS: **hydrALAZINE HCL** 25 MG TAB PO SCH ×2 (02:22→09:46)
[2018-06-10] MEDS: IPRATROPIUM 0.5MG/ALBUTEROL 2.5MG INH SOL UD 3ML (DUONEB)(J7620) NEB SCH ×4 (02:55→11:19)
[2018-06-10] MEDS: MOXIFLOXACIN 400 MG TAB PO SCH (05:32)
[2018-06-10 06:00] VITALS: BP 152/78
[2018-06-10 06:48] LABS: BLOOD UREA NITROGEN 31 MG/DL (7-18); CALCIUM LEVEL 8.7 MG/DL (8.8-10.2); CARBON DIOXIDE LEVEL 27 MEQ/L (21-32); CHLORIDE LEVEL 107 MEQ/L (98-107); CREATININE FOR GFR 1.01 MG/DL (0.70-1.30); GLOMERULAR FILTRATION RATE > 60.0 (>49); GLUCOSE, FASTING 171 MG/DL (70-100); POTASSIUM SERUM 4.2 MEQ/L (3.5-5.1); SODIUM LEVEL 141 MEQ/L (136-145)
[2018-06-10 06:50] LABS: HEMATOCRIT 49.7 % (42.0-52.0); HEMOGLOBIN 16.4 g/dl (13.5-17.5); MEAN CORPUSCULAR HEMOGLOBIN 30.3 pg (27.0-33.0); MEAN CORPUSCULAR VOLUME 91.9 fl (80.0-96.0); PLATELET COUNT, AUTOMATED 282 10^3/uL (150-450); RED BLOOD COUNT 5.41 10^6/uL (4.30-6.10); WHITE BLOOD COUNT 9.5 10^3/uL (4.0-10.0)
[2018-06-10] MEDS: TIOTROPIUM INHALER/CAPSULE (SPIRIVA) INH SCH (07:53)
[2018-06-10] MEDS: ADVAIR HFA 230/21MCG INHALER INH SCH (07:54)
[2018-06-10] MEDS ORDERED: FUROSEMIDE 40 MG/4 ML VIAL (J1940) IV ONE (08:45)
[2018-06-10 08:56] VITALS: BP 148/80
[2018-06-10] MEDS: DICYCLOMINE 10 MG CAP PO SCH ×2 (09:04→12:00)
[2018-06-10] MEDS: HumaLOG INSULIN (NovoLOG) PER UNIT SC SCH (09:05)
[2018-06-10] MEDS: VITAMIN D 1,000 INTERNATIONAL UNITS TABLET PO SCH (09:44)
[2018-06-10] MEDS: guaiFENesin ER 600 MG TAB PO SCH (09:45)
[2018-06-10] MEDS: buPROPion **SR TABLET** (ZYBAN) 150MG PO SCH (09:45)
[2018-06-10 09:46] VITALS: BP 148/80
[2018-06-10] MEDS: amLODIPine 10 MG TAB PO SCH (09:46)
[2018-06-10] MEDS: tiZANidine 4 MG TAB PO SCH (09:47)
[2018-06-10] MEDS: predniSONE 50 MG TAB PO SCH (09:47)
[2018-06-10] MEDS: ASPIRIN 81 MG ENTERIC TAB PO SCH (09:47)
[2018-06-10] MEDS: PREGABALIN 100 MG CAP (LYRICA) PO SCH (09:47)
[2018-06-10] MEDS: NICOTINE 21MG/24HR 1 EA TRANSDERMAL TD SCH (09:49)
[2018-06-10] MEDS: LEVEMIR (INSULIN DETEMIR) 1 UNITS/0.01ML SC SCH (09:52)
[2018-06-10] MEDS: ENOXAPARIN 40 MG/0.4 ML SYRINGE (J1650) SC SCH (09:53)
[2018-06-10] MEDS ORDERED: LASI40TA9 PO (09:54)
[2018-06-10] MEDS: ACETAMINOPHEN TAB 650MG DOSE (2X325MG) PO PRN (11:34)
--- NOTE | 2018-06-10 14:39 | DSES ---
DATE OF ADMISSION: 06/02/2018 DATE OF DISCHARGE: 06/10/2018 PRIMARY CARE PROVIDER: Dr. Rich Irby HAM MARKER: Dr. Ha DISCHARGE DIAGNOSES: Hypoxia. Dyspnea secondary to likely acute chronic obstructive pulmonary artery disease (COPD) exacerbation undiagnosed. Pulmonary artery hypertension. Pneumonia. Suspected angioedema on admission. Acute kidney injury. Dyslipidemia. Hypertension. Smoking. Uncontrolled diabetes. Lower extremity. HISTORY OF PRESENT ILLNESS: This is a 63-year-old male patient with underlying medical history of type 2 diabetes, hypertension, dyslipidemia, smoker, presented with complaining of 1 day of lip and tongue and throat swelling with shortness of breath. Patient reported he was in his usual state of health until the morning when the patient was having coffee and all of a sudden he saw his lips and tongue swell and throat feel like it was swollen as well. Patient was having trouble breathing. He immediately called for medical attention. Patient also had a nonproductive cough. Denies any prior incidence. Long history of smoking 1 to 2 pack per day for the last 45 years, recently attempted to quit. No formal diagnosis of chronic obstructive pulmonary artery disease (COPD) or emphysema. No known allergies. No new medication. No new food recently. Denies any chest pain, pressure, or discomfort. HOSPITAL COURSE: Patient was given epinephrine, Benadryl, and steroids. ENT was consulted. Status post laryngoscopy was unremarkable finding. Patient's ARB was discontinued initially. Patient's swelling improved, but has significant wheeze and coughing. Respiratory panel and blood culture has been negative. Patient was started on antibiotic for presumed pneumonia and COPD exacerbation. Pulmonary has been consulted. Patient was also diuresed given lower extremity edema. Likely patient also had pulmonary hypertension. Advair and Spiriva has also been added. Initially oxygen provided. Later patient was weaned off of the oxygen. Kidney function was followed. Blood pressure was followed. Patient's glucose was out of control, possibly also due to poor compliance and also due to steroids. Insulin was started. Insulin education provided. A1cs appreciated. Patient was able to be weaned off of oxygen. Has physical therapy. Reported improving respiration with only minimum cough ready to be discharged for further care as outpatient. Vital signs: Temperature 97.8. Pulse 86. Respiration 18. Blood pressure 148/80. Pulse ox 93% on room air. LABORATORY DATA: WBC 9.5, hemoglobin and hematocrit 16.4 over 49.7, platelets 282. Chemistry - sodium 141, potassium 4.2, chloride 107, bicarbonate 27, BUN 31, creatinine 1.01. PHYSICAL EXAMINATION: GENERAL: Patient alert, comfortable. HEENT: Normocephalic, atraumatic. CARDIAC: Regular, S1, S2. PULMONARY: Minimal wheeze. No crackles. ABDOMEN: Soft, nontender. EXTREMITIES: 1+ edema bilateral lower extremities. DISCHARGE MEDICATION: - Lasix 40 mg by mouth daily - Glucose test strips - lancet pen needles for insulin - Mucinex 1200 mg by mouth twice a day - hydralazine 25 mg by mouth every 8 hours - Avelox 400 mg by mouth daily for three more doses - nicotine patch 21 mg daily - transdermal prednisone taper - Advair inhalation twice a day - Spiriva inhalation once a day - Advair 230/21 microgram combination twice a day - Spiriva inhalation daily - Toujeo 40 units subcutaneous at bedtime, check fingerstick fasting in the morning and increase Toujeo at night until fasting morning glucose is less than 200 - Norvasc 500 mg by mouth daily - aspirin 81 mg by mouth daily - Lipitor 40 mg by mouth at bedtime - bupropion 150 mg by mouth twice a day - Chlorthalidone 25 mg by mouth daily - Vitamin D 1000 units by mouth daily - dicyclomine 10 mg by mouth at bedtime - potassium chloride 10 mEq by mouth twice a day - Lyrica 100 mg by mouth three times a day - tizanidine 4 mg by mouth three times a day as needed DISCHARGE INSTRUCTIONS: Please seen primary care provider in [address] Ha, pulmonology in 7 days. Sleep study and pulmonary function test as per Dr. Ha. Need improved glucose control as per primary care provider. Adjust insulin as per primary care provider. Insulin teaching provided. Smoking cessation encouraged. Return if symptoms worsen.
== END 2018-06-10 12:40 | disposition home or self-care (01) | DRG 916 ==
LOC: M ED 11:43 → M ED INP 20:22 → M MSPAV 22:57 → M ICU 06-03 16:59 → M MS5PR 06-06 12:30
PROVIDERS: ADMIT Internal Medicine; ATTEND Hospitalist
DX: T78.3XXA Angioneurotic edema, initial encounter (principal); N17.9 Acute kidney failure, unspecified; J44.1 Chronic obstructive pulmonary disease with (acute) exacerbation; R09.02 Hypoxemia; E11.65 Type 2 diabetes mellitus with hyperglycemia; I27.20 Pulmonary hypertension, unspecified; I10 Essential (primary) hypertension; E78.5 Hyperlipidemia, unspecified; Z87.891 Personal history of nicotine dependence; Z79.82 Long term (current) use of aspirin; Z79.84 Long term (current) use of oral hypoglycemic drugs; Z79.899 Other long term (current) drug therapy

== ENCOUNTER → 2018-07-17 | Outpatient (CLI) | payer MEDICARE ==
[~2018-07-17] MED LIST changes: +ADVA230A INH; +ALCOPAD17 TOP; +AMLO10TA5 PO; +ATOR40TA75 PO; +AVEL1TAB3 PO; +BUPR1TAB53 PO; +CHLO25TA PO; +GLIP10TA18 PO; +GLUC1TES2 XX; +HYDR25TA PO; +LANC30MI XX; +LASI40TA9 PO; +LOSA100T50 PO; +MUCI600T37 PO; +NICO21PAT TD; +PEN1MIS22 SC; +POTA1TAB23 PO; +PRED10TA2 PO; +PREG100CA PO; +TIOT18INH INH; +TOUJ300I2 SC; +VITA100066 PO
--- NOTE | 2018-07-23 23:15 | SLEEPCENT ---
DATE OF PROCEDURE: 07/17/2018 REFERRING PROVIDER: Dr. Rich Irby INTERPRETATION: Nocturnal polysomnography was performed for the evaluation of sleep apnea syndrome symptoms in this patient with excessive daytime sleepiness, insomnia, snoring, observed apnea, gasping respirations, nonrestorative sleep. He also has the comorbidities of diabetes mellitus, type 2 and pulmonary hypertension. A total of 7 hours and 29 minutes of data was reviewed with 343 minutes of sleep identified. Sleep latency was 28 minutes. Rapid eye movement (REM) latency was 194.5 minutes. All stages of sleep were identified. Sleep efficiency was decreased at 76.9%. EKG showed normal sinus rhythm with an average heart rate of 66 beats per minute. Speeding and slowing was noted surrounding some respiratory events. No epileptiform discharge observed. There were 111 events identified of 10 seconds in duration or longer for an apnea-hypopnea index (AHI) of 19.4. The events were predominantly obstructive apneas/hypopneas. Respiratory effort-related arousal (RERA) index was 2.1 giving a total respiratory disturbance index (RDI) of 21.5. Mean oxygen saturation for the study was 92% with a minimum recorded value of 71%. Arousal index was 7.2 with the majority of arousals breathing related. Periodic limb movement index was elevated at 32.4. IMPRESSION: 1. Obstructive sleep apnea, moderate. 2. Periodic limb movements, moderate. RECOMMENDATIONS: Recommend the patient return to the sleep disorder center for the determination of pressure therapy. Pending that intervention, alcohol and sedative usage should be avoided and care should be taken when operating motor vehicles. NATALIA
== END ==
LOC: M SLEEP 20:00
PROVIDERS: ATTEND Internal Medicine Pulmonary Disease
DX: G47.30 Sleep apnea, unspecified (principal); G47.61 Periodic limb movement disorder

== ENCOUNTER → 2018-09-30 | Outpatient (REF) | payer MEDICARE | LOC: M LAB REF 13:10 | PROVIDERS: ATTEND Internal Medicine Nephrology | DX: R80.9 Proteinuria, unspecified (principal); N18.2 Chronic kidney disease, stage 2 (mild) ==

== ENCOUNTER → 2019-02-03 | Outpatient (REF) | payer MEDICARE ==
[2019-02-03 11:53] LABS: BASO # 0.1 10^3/uL (0.0-0.2); BASO % 0.8 % (0.0-1.0); EOS # 0.2 10^3/uL (0.0-0.5); EOS % 1.8 % (0.0-3.0); LYMPH # 2.6 10^3/uL (1.5-5.0); LYMPH % 28.6 % (24.0-44.0); MEAN CORPUSCULAR HEMOGLOBIN 30.5 pg (27.0-33.0); MEAN CORPUSCULAR HGB CONC 33.6 g/dl (32.0-36.5); MEAN CORPUSCULAR VOLUME 90.6 fl (80.0-96.0); MONO # 0.6 10^3/uL (0.0-0.8); NEUTROPHILS # 5.7 10^3/uL (1.5-8.5); NEUTROPHILS % 61.9 % (36.0-66.0); PLATELET COUNT, AUTOMATED 194 10^3/uL (150-450); RED BLOOD COUNT 6.14 10^6/uL (4.30-6.10); WHITE BLOOD COUNT 9.2 10^3/uL (4.0-10.0)
[2019-02-03 11:54] LABS: HEMATOCRIT 55.6 % (42.0-52.0); HEMOGLOBIN 18.7 g/dl (13.5-17.5)
[2019-02-03 11:55] LABS: MONO % 6.4 % (0.0-5.0)
[2019-02-03 12:29] LABS: BLOOD UREA NITROGEN 19 MG/DL (7-18); CALCIUM LEVEL 9.2 MG/DL (8.8-10.2); CARBON DIOXIDE LEVEL 29 MEQ/L (21-32); CHLORIDE LEVEL 97 MEQ/L (98-107); CREATININE FOR GFR 0.87 MG/DL (0.70-1.30); GLOMERULAR FILTRATION RATE > 60.0 (>49); GLUCOSE, FASTING 252 MG/DL (70-100); POTASSIUM SERUM 3.6 MEQ/L (3.5-5.1); SODIUM LEVEL 135 MEQ/L (136-145)
[2019-02-03 13:06] LABS: MAU/CREAT RATIO 981.3 MCG/MG (0.0-30.0)
== END ==
LOC: M SFHCPLAZ 10:30
PROVIDERS: ATTEND Family Medicine
DX: R61 Generalized hyperhidrosis (principal); E11.21 Type 2 diabetes mellitus with diabetic nephropathy

== ENCOUNTER → 2019-02-07 | Outpatient (REF) | payer MEDICARE | LOC: M LAB REF 12:41 | PROVIDERS: ATTEND Internal Medicine Nephrology | DX: N18.2 Chronic kidney disease, stage 2 (mild) (principal); R80.9 Proteinuria, unspecified ==

== ENCOUNTER → 2019-05-23 | Outpatient (REF) | payer MEDICARE | LOC: M SFHCPLAZ 11:15 | PROVIDERS: ATTEND Family Medicine | DX: E11.65 Type 2 diabetes mellitus with hyperglycemia (principal); Z53.8 Procedure and treatment not carried out for other reasons ==

== ENCOUNTER → 2019-05-30 | Outpatient (REF) | payer MEDICARE ==
[2019-05-30 13:57] LABS: HEMOGLOBIN A1c 8.9 %
[2019-05-30 14:57] LABS: CREATININE, URINE 83.9 MG/DL; MAU/CREAT RATIO 2943.9 MCG/MG (0.0-30.0)
== END ==
LOC: M SFHCPLAZ 10:51
PROVIDERS: ATTEND Family Medicine
DX: E11.65 Type 2 diabetes mellitus with hyperglycemia (principal)

== ENCOUNTER → 2019-10-12 | Outpatient (CLI) | payer MEDICARE ==
[~2019-10-12] MED LIST changes: +ACTO30TA15 PO; +CYCL-707 PO; -CYCL10TA PO; +NOVOINJ2 SC; +SPIR-10 PO; +TRAM50TA2 PO
--- NOTE | 2019-10-12 09:33 | REP ---
Clinical: Left upper quadrant pain. Splenomegaly. Technique: Real time bearden scale and color ultrasound examination using curved array transducer. Findings: The spleen is normal in size and echotexture measuring 10.4 x 9.7 x 6.3 cm with normal vascularity and no obvious focal splenic lesion or left upper quadrant fluid. Impression: Normal appearance of the spleen.
== END ==
LOC: M PLAIMG 07:50
PROVIDERS: ATTEND Internal Medicine Medical Oncology
DX: D58.2 Other hemoglobinopathies (principal)

== ENCOUNTER → 2019-12-20 | Outpatient (REF) | payer MEDICARE ==
[~2019-12-20] MED LIST changes: -AMLO10TA5 PO; +AMLO1TAB25 PO; +MAGN400C2 PO
[2019-12-20 20:34] LABS: HEMOGLOBIN A1c 9.3 %
[2019-12-21 17:56] LABS: MAU/CREAT RATIO 2796.3 MCG/MG (0.0-30.0)
== END ==
LOC: M PLALAB 15:00
PROVIDERS: ATTEND Student in an Organized Health Care Education/Training Program
DX: E11.9 Type 2 diabetes mellitus without complications (principal)

== ENCOUNTER → 2020-01-25 | Outpatient (REF) | payer MEDICARE | LOC: M LAB REF 17:06 | PROVIDERS: ATTEND Internal Medicine Nephrology | DX: N18.1 Chronic kidney disease, stage 1 (principal); R80.9 Proteinuria, unspecified ==

== ENCOUNTER → 2020-05-28 | Outpatient (REF) | payer MEDICARE | LOC: M LAB REF 17:28 | PROVIDERS: ATTEND Internal Medicine Nephrology | DX: N18.1 Chronic kidney disease, stage 1 (principal); R80.9 Proteinuria, unspecified ==

== ENCOUNTER → 2020-06-01 | Outpatient (REF) | payer MEDICARE ==
[2020-06-01 14:41] LABS: HEMOGLOBIN A1c 7.5 %
[2020-06-01 15:04] LABS: CREATININE, URINE 61.3 MG/DL; MAU/CREAT RATIO 2756.9 MCG/MG (0.0-30.0)
== END ==
LOC: M SFHCPLAZ 10:45
PROVIDERS: ATTEND Family Medicine
DX: E11.65 Type 2 diabetes mellitus with hyperglycemia (principal)

== ENCOUNTER → 2020-07-02 | Outpatient (CLI) | payer MEDICARE ==
--- NOTE | 2020-07-03 14:39 | SLEEPCENT ---
DATE: 07/02/2020 ORDERED BY: Jeannine Mathis Nocturnal polysomnography was performed for evaluation of sleep physiology in this patient with a prior history of obstructive sleep apnea syndrome, who has hypertension, diabetes, and pulmonary hypertension as well as erythrocytosis. There was 7 hours and 46 minutes of data reviewed. There was 375.5 minutes of sleep identified. Sleep latency was prolonged at 46 minutes. REM latency was normal at 68 minutes. Sleep architecture was fair with some fragmentation. There were three REM cycles appreciated. Overall sleep efficiency was 81.4%. The electrocardiogram showed a sinus rhythm with an average heart rate of 75 beats per minute. Rate ranged 60-85. EEG showed some mild coarsening in background. No focal EEG abnormalities were appreciated, and there were normal waveforms for wake and sleep stages. There were 44 respiratory events identified of 10 seconds in duration or greater for an apnea-hypopnea index of 7. The events were primarily obstructive, more frequent but not exclusive to stage REM. Not exclusive to sleep position. Arousals from respiratory events occurred three times per hour. Oxygen desaturations were seen in the mid portion of the study, prompting the addition of supplemental oxygen. Later in the test, despite oxygen at 3 liters per minute, desaturations were seen into the 80s. There was some activity noted in the limb leads; however, limb movement arousal index was only 1.8. IMPRESSION: 1. Obstructive sleep apnea syndrome (G47.33). Apnea-hypopnea index 7. 2. Hypoventilation with desaturation. RECOMMENDATION: The patient should be encouraged to return to the sleep disorder center for pressure therapy. In the interim, alcohol and sedative avoidance should be practiced and caution exercised during the operation of motor vehicles. Given the hypoventilatory oxygen desaturations appreciated, supplemental oxygen may be necessary in addition to CPAP once adequate pressure has been achieved to overcome airway obstruction.
== END ==
LOC: M SLEEP 20:00
PROVIDERS: ATTEND Nurse Practitioner Adult Health
DX: G47.33 Obstructive sleep apnea (adult) (pediatric) (principal)

== ENCOUNTER → 2020-07-07 | Outpatient (CLI) | payer MEDICARE ==
--- NOTE | 2020-07-09 13:59 | SLEEPCENT ---
NOCTURNAL POLYSOMNOGRAPHY DATE: 07/07/2020 ORDERED BY: Jeannine Mathis NP Nocturnal polysomnography was performed for the titration of pressure therapy in this patient with obstructive sleep apnea syndrome with apnea-hypopnea index of 7. For testing, the patient was fit with a ResMed f30 full face mask of medium size was used, 4 cm of water pressure were applied to the circuit, and the lights were extinguished. 8 hours and 21 minutes of data were reviewed. There were 387 minutes of sleep identified. Sleep latency was prolonged at 51 minutes. REM latency was normal at 57 minutes. Sleep architecture improved with two REM cycles. Overall sleep efficiency was 79.1%. The electrocardiogram showed a sinus rhythm with an average heart rate of 70 beats per minute. EEG showed normal waveforms for wake and sleep. Respiratory events were reasonably palliated with CPAP at a pressure of +12, but hypoventilatory oxygen desaturations into the 70s prompted the addition of supplemental oxygen. Oxygen was increased. Reasonable oxygenation and sleep were encountered at an oxygen flow rate of 4 L/min. Mild hypoventilatory desaturations persisted nonetheless. IMPRESSION: Obstructive sleep apnea syndrome (G47.33). RECOMMENDATION: Nightly use of pressure therapy at 12 cm of water was sufficient to overcome the patient's obstructive respiratory events. Hypoventilatory oxygen desaturations will require the addition of supplemental oxygen at 4 L/min via nasal cannula. Close clinical follow-up is recommended. Cc: Dr. [facility]
== END ==
LOC: M SLEEP 20:00
PROVIDERS: ATTEND Nurse Practitioner Adult Health
DX: G47.33 Obstructive sleep apnea (adult) (pediatric) (principal)

== ENCOUNTER → 2020-08-28 | Outpatient (REF) | payer MEDICARE ==
[2020-08-28 18:49] LABS: TOTAL PROTEIN 6.9 GM/DL (6.4-8.2)
== END ==
LOC: M LAB REF 17:03
PROVIDERS: ATTEND Internal Medicine Nephrology
DX: E11.22 Type 2 diabetes mellitus with diabetic chronic kidney disease (principal)

== ENCOUNTER → 2020-11-23 | Outpatient (REF) | payer MEDICARE | LOC: M SFHCPLAZ 10:45 | PROVIDERS: ATTEND Family Medicine | DX: G89.29 Other chronic pain (principal) ==

== ENCOUNTER → 2020-11-23 | Outpatient (REF) | payer MEDICARE | LOC: M SFHCPLAZ 12:49 | PROVIDERS: ATTEND Student in an Organized Health Care Education/Training Program | DX: G89.29 Other chronic pain (principal) ==

== ENCOUNTER → 2020-11-26 | Outpatient (CLI) | payer MEDICARE ==
[2020-11-26 15:28] LABS: HEMATOCRIT 56.4 % (42.0-52.0); HEMOGLOBIN 18.8 g/dl (13.5-17.5); MEAN CORPUSCULAR HEMOGLOBIN 29.9 pg (27.0-33.0); MEAN CORPUSCULAR HGB CONC 33.3 g/dl (32.0-36.5); MEAN CORPUSCULAR VOLUME 89.7 fl (80.0-96.0); PLATELET COUNT, AUTOMATED 197 10^3/uL (150-450); RED BLOOD COUNT 6.29 10^6/uL (4.30-6.10); WHITE BLOOD COUNT 8.4 10^3/uL (4.0-10.0)
[2020-11-26 15:44] LABS: HEMOGLOBIN A1c 8.1 %
[2020-11-26 15:56] LABS: ALBUMIN 3.1 GM/DL (3.2-5.2); ALT/SGPT 19 U/L (12-78); BILIRUBIN,TOTAL 0.4 MG/DL (0.2-1.0); BLOOD UREA NITROGEN 18 MG/DL (7-18); CALCIUM LEVEL 9.1 MG/DL (8.8-10.2); CARBON DIOXIDE LEVEL 31 MEQ/L (21-32); CHLORIDE LEVEL 102 MEQ/L (98-107); GLOMERULAR FILTRATION RATE > 60.0 (>49); GLUCOSE, FASTING 229 MG/DL (70-100); POTASSIUM SERUM 4.2 MEQ/L (3.5-5.1); SODIUM LEVEL 137 MEQ/L (136-145); TOTAL PROTEIN 6.8 GM/DL (6.4-8.2)
== END ==
LOC: M PLALAB 13:01
PROVIDERS: ATTEND Student in an Organized Health Care Education/Training Program
DX: G89.29 Other chronic pain (principal)

== ENCOUNTER → 2021-01-09 | Outpatient (CLI) | payer MEDICARE ==
--- NOTE | 2021-01-09 12:07 | REP ---
INDICATION: SMOKER. COMPARISON: Multiple the latest 06/03/[address] enhanced CT of the chest TECHNIQUE: Axial noncontrast images from the thoracic inlet to the upper abdomen using low-dose lung screening technique (LDCT). As per the protocol only lung window images were sent to the read station for interpretation FINDINGS: There are no new abnormal nodules, masses, or opacities. There is stable cylindrical bronchiectasis with early verrucoid changes particularly in the left lower lobe status quo. Grossly, the mediastinum and pulmonary donna are stable Grossly, the imaged upper abdomen and imaged osseous structures are stable. IMPRESSION: Stable lung rads category 2 low-dose screening CT examination of the lungs. Follow-up as per the revised Fleischner society criteria. <Electronically signed by Michael George > 01/09/21 [id number]
== END ==
LOC: M RAD 11:06
PROVIDERS: ATTEND Student in an Organized Health Care Education/Training Program
DX: Z12.2 Encounter for screening for malignant neoplasm of respiratory organs (principal); F17.210 Nicotine dependence, cigarettes, uncomplicated

== ENCOUNTER → 2021-02-28 | Outpatient (REF) | payer MEDICARE | LOC: M LAB REF 16:52 | PROVIDERS: ATTEND Internal Medicine Nephrology | DX: E83.42 Hypomagnesemia (principal) ==

== ENCOUNTER → 2021-07-05 | Outpatient (CLI) | payer MEDICARE ==
[~2021-07-05] MED LIST changes: +LOSA100T45 PO; -LOSA100T50 PO
[2021-07-05 17:10] LABS: HEMATOCRIT 47.7 % (42.0-52.0); HEMOGLOBIN 16.3 g/dl (13.5-17.5); MEAN CORPUSCULAR HEMOGLOBIN 30.2 pg (27.0-33.0); MEAN CORPUSCULAR HGB CONC 34.2 g/dl (32.0-36.5); MEAN CORPUSCULAR VOLUME 88.3 fl (80.0-96.0); PLATELET COUNT, AUTOMATED 239 10^3/uL (150-450); WHITE BLOOD COUNT 9.4 10^3/uL (4.0-10.0)
[2021-07-05 17:29] LABS: HEMOGLOBIN A1c 11.1 %
[2021-07-05 17:45] LABS: BLOOD UREA NITROGEN 27 MG/DL (7-18); CALCIUM LEVEL 9.2 MG/DL (8.8-10.2); CARBON DIOXIDE LEVEL 30 MEQ/L (21-32); CHLORIDE LEVEL 100 MEQ/L (98-107); CHOLESTEROL LEVEL 171 MG/DL (<200); CHOLESTEROL RISK RATIO 3.562 (<5); CREATININE FOR GFR 1.06 MG/DL (0.70-1.30); GLOMERULAR FILTRATION RATE > 60.0 (>49); GLUCOSE, FASTING 304 MG/DL (70-100); HDL CHOLESTEROL 48 MG/DL (>40); LDL CHOLESTEROL 88 MG/DL (<100); NON-HDL-C 123 MG/DL; POTASSIUM SERUM 4.3 MEQ/L (3.5-5.1); SODIUM LEVEL 134 MEQ/L (136-145); TRIGLYCERIDES LEVEL 175 MG/DL (<150)
[2021-07-05 18:19] LABS: MAU/CREAT RATIO 3315.7 MCG/MG (0.0-30.0)
== END ==
LOC: M PLALAB 14:52
PROVIDERS: ATTEND Student in an Organized Health Care Education/Training Program
DX: Z13.1 Encounter for screening for diabetes mellitus (principal)

== ENCOUNTER → 2021-08-28 | Outpatient (REF) | payer MEDICARE ==
[2021-08-28 17:53] LABS: CREATININE,RANDOM URINE 95.6 MG/DL; TOTAL PROTEIN,RANDOM URINE 295.9 MG/DL (0.0-12.0)
== END ==
LOC: M LAB REF 17:01
PROVIDERS: ATTEND Nurse Practitioner Family
DX: R80.9 Proteinuria, unspecified (principal)

== ENCOUNTER → 2021-09-06 | Outpatient (REF) | payer MEDICARE | LOC: M SFHCPLAZ 09:01 | PROVIDERS: ATTEND Family Medicine | DX: E11.65 Type 2 diabetes mellitus with hyperglycemia (principal) ==

== ENCOUNTER → 2021-09-06 | Outpatient (CLI) | payer MEDICARE ==
[2021-09-06 12:45] LABS: CHOLESTEROL RISK RATIO 2.934 (<5)
[2021-09-06 13:21] LABS: MAU/CREAT RATIO 2901.7 MCG/MG (0.0-30.0)
[2021-09-06 13:59] LABS: HEMOGLOBIN A1c 10.9 %
== END ==
LOC: M PLALAB 09:25
PROVIDERS: ATTEND Student in an Organized Health Care Education/Training Program
DX: E11.65 Type 2 diabetes mellitus with hyperglycemia (principal)

== ENCOUNTER → 2021-09-12 | Outpatient (REF) | payer MEDICARE | LOC: M LAB REF 17:15 | PROVIDERS: ATTEND Nurse Practitioner Family | DX: R80.9 Proteinuria, unspecified (principal) ==

== ENCOUNTER → 2021-10-08 | Outpatient (CLI) | payer MEDICARE | LOC: M PLAIMG 14:49 | PROVIDERS: ATTEND Student in an Organized Health Care Education/Training Program | DX: M25.559 Pain in unspecified hip (principal); M47.816 Spondylosis without myelopathy or radiculopathy, lumbar region ==

== ENCOUNTER → 2021-11-12 | Outpatient (CLI) | payer MEDICARE ==
[2021-11-12 14:02] LABS: ALBUMIN 3.2 GM/DL (3.2-5.2); ALT/SGPT 24 U/L (12-78); BILIRUBIN,TOTAL 0.4 MG/DL (0.2-1.0); BLOOD UREA NITROGEN 15 MG/DL (7-18); CALCIUM LEVEL 9.9 MG/DL (8.8-10.2); CARBON DIOXIDE LEVEL 28 MEQ/L (21-32); CHLORIDE LEVEL 105 MEQ/L (98-107); CREATININE FOR GFR 0.85 MG/DL (0.70-1.30); GLOMERULAR FILTRATION RATE > 60.0 (>49); GLUCOSE, FASTING 170 MG/DL (70-100); POTASSIUM SERUM 4.9 MEQ/L (3.5-5.1); SODIUM LEVEL 139 MEQ/L (136-145)
[2021-11-12 16:12] LABS: HEMOGLOBIN A1c 9.1 %
== END ==
LOC: M PLALAB 11:17
PROVIDERS: ATTEND Student in an Organized Health Care Education/Training Program
DX: E11.65 Type 2 diabetes mellitus with hyperglycemia (principal)

== ENCOUNTER → 2021-11-12 | Outpatient (REF) | payer MEDICARE | LOC: M SFHCPLAZ 10:58 | PROVIDERS: ATTEND Family Medicine | DX: E11.65 Type 2 diabetes mellitus with hyperglycemia (principal) ==

== ENCOUNTER → 2022-02-12 | Outpatient (CLI) | payer MEDICARE ==
[2022-02-12 14:29] LABS: ALT/SGPT 26 U/L (12-78); BILIRUBIN,TOTAL 0.6 MG/DL (0.2-1.0); BLOOD UREA NITROGEN 16 MG/DL (7-18); CALCIUM LEVEL 8.8 MG/DL (8.8-10.2); CARBON DIOXIDE LEVEL 32 MEQ/L (21-32); CHLORIDE LEVEL 102 MEQ/L (98-107); CREATININE FOR GFR 0.96 MG/DL (0.70-1.30); GLOMERULAR FILTRATION RATE > 60.0 (>49); GLUCOSE, FASTING 231 MG/DL (70-100); POTASSIUM SERUM 4.5 MEQ/L (3.5-5.1); SODIUM LEVEL 138 MEQ/L (136-145); TOTAL PROTEIN 6.5 GM/DL (6.4-8.2)
== END ==
LOC: M PLALAB 11:45
PROVIDERS: ATTEND Student in an Organized Health Care Education/Training Program
DX: E11.65 Type 2 diabetes mellitus with hyperglycemia (principal)

== ENCOUNTER → 2022-05-23 | Outpatient (CLI) | payer MEDICARE ==
[2022-05-23 14:23] LABS: ALBUMIN 3.1 G/DL (3.2-5.2); ALKALINE PHOSPHATASE 126 U/L (46-116); ALT/SGPT 42 U/L (7.0-40); AST/SGOT 21 U/L (<34); BILIRUBIN,TOTAL 0.6 MG/DL (0.3-1.2); BLOOD UREA NITROGEN 18 MG/DL (9-23); CALCIUM LEVEL 9.1 MG/DL (8.3-10.6); CARBON DIOXIDE LEVEL 31 MMOL/L (20-31); CHLORIDE LEVEL 97 MMOL/L (98-107); CREATININE FOR GFR 0.82 MG/DL (0.70-1.30); GLOMERULAR FILTRATION RATE > 60.0 (>49); GLUCOSE, FASTING 267 MG/DL (74-106); POTASSIUM SERUM 4.9 MMOL/L (3.5-5.1); SODIUM LEVEL 135 MMOL/L (136-145); TOTAL PROTEIN 6.6 G/DL (5.7-8.2)
[2022-05-23 15:47] LABS: HEMOGLOBIN A1c 12.1 % (4.0-6.0)
== END ==
LOC: M PLALAB 10:48
PROVIDERS: ATTEND Student in an Organized Health Care Education/Training Program
DX: E11.65 Type 2 diabetes mellitus with hyperglycemia (principal)

== ENCOUNTER → 2022-05-23 | Outpatient (REF) | payer MEDICARE | LOC: M SFHCPLAZ 10:24 | PROVIDERS: ATTEND Family Medicine | DX: E11.65 Type 2 diabetes mellitus with hyperglycemia (principal); Z53.9 Procedure and treatment not carried out, unspecified reason ==

== ENCOUNTER → 2022-07-30 | Outpatient (CLI) | payer MEDICARE ==
[2022-07-30 14:42] LABS: CREATININE,RANDOM URINE 101.1 MG/DL
[2022-07-30 14:43] LABS: CHOLESTEROL RISK RATIO 4.18 (<5); HDL CHOLESTEROL 39.9 MG/DL (>40); LDL CHOLESTEROL 96.9 MG/DL (<100); NON-HDL-C 127.1 MG/DL
[2022-07-30 14:45] LABS: TOTAL PROTEIN,RANDOM URINE 725.6 MG/DL (0.0-14.0)
== END ==
LOC: M PLALAB 10:47
PROVIDERS: ATTEND Nurse Practitioner Family
DX: R80.9 Proteinuria, unspecified (principal); E78.00 Pure hypercholesterolemia, unspecified

== ENCOUNTER → 2022-09-09 | Outpatient (REF) | payer MEDICARE ==
[~2022-09-09] MED LIST changes: -COZA50TA PO; +LOSA-528 PO; -LOSA100T45 PO; +LOSA100T46 PO; +XTAM13.5; +XTAM9CAP
[2022-09-09 17:27] LABS: INR 0.93; PROTHROMBIN TIME 12.7 SECONDS (12.5-14.5)
== END ==
LOC: M LAB REF 16:46
PROVIDERS: ATTEND Internal Medicine Nephrology
DX: R31.9 Hematuria, unspecified (principal)

== ENCOUNTER → 2022-09-16 | Outpatient (CLI) | payer MEDICARE ==
[~2022-09-16] MED LIST changes: +LIDOCAINE 1% MDV 20ML VIAL As Ordered ONE
[2022-09-16 15:00] VITALS: BP 143/79
== END ==
LOC: M IRPRO 09-02 11:22
PROVIDERS: ATTEND Internal Medicine Nephrology
DX: R80.9 Proteinuria, unspecified (principal)

== ENCOUNTER → 2022-10-28 | Outpatient (CLI) | payer MEDICARE ==
[~2022-10-28] MED LIST changes: +DICY-61 PO; -DICY10CA13 PO; -LIDOCAINE 1% MDV 20ML VIAL As Ordered ONE; +PREG200C PO; -XTAM13.5; +XTAM13.5 PO; -XTAM9CAP; +XTAM9CAP PO; +[UNRECOGNIZED DRUG - CODE] PO
== END ==
LOC: M RAD 09:28
PROVIDERS: ATTEND Family Medicine
DX: F17.211 Nicotine dependence, cigarettes, in remission (principal)

== ENCOUNTER → 2022-11-10 | Outpatient (CLI) | payer MEDICARE | LOC: M RAD 07:07 | PROVIDERS: ATTEND Student in an Organized Health Care Education/Training Program | DX: F17.211 Nicotine dependence, cigarettes, in remission (principal) ==

== ENCOUNTER → 2022-12-08 | Outpatient (CLI) | payer MEDICARE ==
[~2022-12-08] MED LIST changes: +GASTROGRAFIN SOLUTION 30ML As Ordered ONE; +ISOVUE-370 76% 100ML VIAL As Ordered ONE
== END ==
LOC: M RAD 14:05
PROVIDERS: ATTEND Internal Medicine Medical Oncology
DX: D45 Polycythemia vera (principal)
CPT/HCPCS: 74177; Q9963; Q9967

== ENCOUNTER → 2022-12-23 | Outpatient (CLI) | payer MEDICARE ==
[~2022-12-23] MED LIST changes: +CYCL5TAB PO; +FURO20TA2 PO; -GASTROGRAFIN SOLUTION 30ML As Ordered ONE; +GLIM2TAB29 PO; -ISOVUE-370 76% 100ML VIAL As Ordered ONE; -PREG200C PO; +PREG200C2 PO
== END ==
LOC: M RAD 14:40
PROVIDERS: ATTEND Student in an Organized Health Care Education/Training Program
DX: M79.605 Pain in left leg (principal)

== ENCOUNTER 2023-01-16 07:21 | Day surgery (SDC) | payer MEDICARE ==
[~2023-01-16] VITALS: Ht 170.2 cm; Wt 89.9 kg
[~2023-01-16 07:21] MED LIST changes: +NS 1,000 ML IV ONE
[2023-01-16] MEDS ORDERED: propofoL 200 MG/20 ML VIAL As Ordered ONE ×2 (08:34→09:10)
[2023-01-16] MEDS ORDERED: GLYCOPYRROLATE INJ 0.2 MG/ML 2 ML VIAL As Ordered ONE ×2 (09:05→09:10)
[2023-01-16 09:45] VITALS: TEMP 98.1
[2023-01-16 10:02] VITALS: BP 157/77; O2SAT 94
== END 2023-01-16 10:14 | disposition home or self-care (01) ==
LOC: M OPP 07:21
PROVIDERS: ATTEND Internal Medicine Gastroenterology
DX: Z86.010 Personal history of colon polyps (principal); Z80.0 Family history of malignant neoplasm of digestive organs; D12.3 Benign neoplasm of transverse colon; D12.4 Benign neoplasm of descending colon; D12.5 Benign neoplasm of sigmoid colon; K63.5 Polyp of colon; K57.30 Diverticulosis of large intestine without perforation or abscess without bleeding; K64.8 Other hemorrhoids; K55.21 Angiodysplasia of colon with hemorrhage; Z87.891 Personal history of nicotine dependence; Z79.02 Long term (current) use of antithrombotics/antiplatelets; Z79.4 Long term (current) use of insulin; Z79.82 Long term (current) use of aspirin; Z79.891 Long term (current) use of opiate analgesic; Z79.899 Other long term (current) drug therapy; Z88.8 Allergy status to other drugs, medicaments and biological substances

== ENCOUNTER → 2023-01-22 | Outpatient (REF) | payer MEDICARE ==
[~2023-01-22] MED LIST changes: -NS 1,000 ML IV ONE
[2023-01-22 19:06] LABS: TOTAL PROTEIN,RANDOM URINE 85.3 MG/DL (0.0-14.0)
[2023-01-22 19:11] LABS: CREATININE,RANDOM URINE 16.4 MG/DL
== END ==
LOC: M LAB REF 17:09
PROVIDERS: ATTEND Nurse Practitioner Family
DX: R80.9 Proteinuria, unspecified (principal)

== ENCOUNTER → 2023-02-06 | Outpatient (CLI) | payer MEDICARE ==
[2023-02-06 15:11] LABS: HEMOGLOBIN A1c 9.2 % (4.0-6.0)
[2023-02-06 15:29] LABS: ALBUMIN 3.3 G/DL (3.2-5.2); ALKALINE PHOSPHATASE 137 U/L (46-116); ALT/SGPT 36 U/L (7.0-40); AST/SGOT 21 U/L (<34); BILIRUBIN,TOTAL 0.5 MG/DL (0.3-1.2); BLOOD UREA NITROGEN 17 MG/DL (9-23); CALCIUM LEVEL 9.3 MG/DL (8.3-10.6); CARBON DIOXIDE LEVEL 32 MMOL/L (20-31); CHLORIDE LEVEL 102 MMOL/L (98-107); CREATININE FOR GFR 0.94 MG/DL (0.70-1.30); CREATININE, URINE 19.9 MG/DL; GLOMERULAR FILTRATION RATE > 60.0 (>49); GLUCOSE, FASTING 59 MG/DL (74-106); SODIUM LEVEL 141 MMOL/L (136-145)
== END ==
LOC: M PLALAB 11:14
PROVIDERS: ATTEND Student in an Organized Health Care Education/Training Program
DX: E11.65 Type 2 diabetes mellitus with hyperglycemia (principal)

== ENCOUNTER → 2023-02-06 | Outpatient (REF) | payer MEDICARE | LOC: M SFHCPLAZ 10:55 | PROVIDERS: ATTEND Student in an Organized Health Care Education/Training Program | DX: E11.65 Type 2 diabetes mellitus with hyperglycemia (principal) ==

== ENCOUNTER → 2023-08-07 | Outpatient (CLI) | payer MEDICARE ==
[~2023-08-07] MED LIST changes: +HUMA75IN2; -HYDR25TA PO; +HYDR25TA88 PO
[2023-08-07 15:24] LABS: HEMATOCRIT 57.5 % (42.0-52.0); MEAN CORPUSCULAR HEMOGLOBIN 30.2 pg (27.0-33.0); MEAN CORPUSCULAR HGB CONC 34.1 g/dl (32.0-36.5); MEAN CORPUSCULAR VOLUME 88.7 fl (80.0-96.0); PLATELET COUNT, AUTOMATED 136 10^3/uL (150-450); WHITE BLOOD COUNT 8.4 10^3/uL (4.0-10.0)
[2023-08-07 15:26] LABS: HEMOGLOBIN 19.6 g/dl (13.5-17.5); RED BLOOD COUNT 6.48 10^6/uL (4.30-6.10)
[2023-08-07 15:32] LABS: INR 1.03; PARTIAL THROMBOPLASTIN TIME 26.5 SECONDS (24.8-34.2); PROTHROMBIN TIME 13.2 SECONDS (12.5-14.5)
[2023-08-07 16:05] LABS: BLOOD UREA NITROGEN 24 MG/DL (9-23); CALCIUM LEVEL 9.2 MG/DL (8.3-10.6); CARBON DIOXIDE LEVEL 31 MMOL/L (20-31); CHLORIDE LEVEL 98 MMOL/L (98-107); CREATININE FOR GFR 0.82 MG/DL (0.70-1.30); GLOMERULAR FILTRATION RATE > 60.0 (>49); GLUCOSE, FASTING 440 MG/DL (74-106); POTASSIUM SERUM 4.6 MMOL/L (3.5-5.1); SODIUM LEVEL 134 MMOL/L (136-145)
== END ==
LOC: M PLALAB 13:19
PROVIDERS: ATTEND Student in an Organized Health Care Education/Training Program
DX: Z01.818 Encounter for other preprocedural examination (principal); Z79.01 Long term (current) use of anticoagulants

== ENCOUNTER 2023-11-07 13:19 | Emergency (ER) | payer MEDICARE ==
[~2023-11-07] VITALS: Ht 170.2 cm; Wt 91.4 kg
[~2023-11-07 13:19] MED LIST changes: +AMOX500C PO; +CLOP75TA2 PO; +ERGO500029 PO; -HUMA75IN2; +HUMA75IN2 SQ; +SEMA0.257 SQ; +VENTAER INH
[2023-11-07 14:12] LABS: HEMATOCRIT 47.3 % (42.0-52.0); HEMOGLOBIN 16.3 g/dl (13.5-17.5); MEAN CORPUSCULAR HGB CONC 34.5 g/dl (32.0-36.5); MEAN CORPUSCULAR VOLUME 87.1 fl (80.0-96.0); PLATELET COUNT, AUTOMATED 145 10^3/uL (150-450); RED BLOOD COUNT 5.43 10^6/uL (4.30-6.10); WHITE BLOOD COUNT 8.1 10^3/uL (4.0-10.0)
[2023-11-07] MEDS ORDERED: CYCL5TAB PO (14:13)
[2023-11-07] MEDS ORDERED: MULT-90 PO (14:13)
[2023-11-07] MEDS ORDERED: LANTINJ4 SC (14:13)
[2023-11-07] MEDS ORDERED: METF-838 PO (14:13)
[2023-11-07 14:46] LABS: BLOOD UREA NITROGEN 22 MG/DL (9-23); CALCIUM LEVEL 8.6 MG/DL (8.3-10.6); CARBON DIOXIDE LEVEL 28 MMOL/L (20-31); CHLORIDE LEVEL 101 MMOL/L (98-107); CREATININE FOR GFR 0.73 MG/DL (0.70-1.30); GLOMERULAR FILTRATION RATE > 60.0 (>49); GLUCOSE, FASTING 264 MG/DL (74-106); POTASSIUM SERUM 4.2 MMOL/L (3.5-5.1); SODIUM LEVEL 135 MMOL/L (136-145)
[2023-11-07] MEDS ORDERED: ISOVUE-370 76% 100ML VIAL As Ordered ONE (14:59)
[2023-11-07] MEDS ORDERED: IBUP-1022 PO (17:10)
[2023-11-07] MEDS: KETOROLAC 30 MG/ML 1ML VIAL IV ONE (17:19)
[2023-11-07 17:34] VITALS: BP 160/75; TEMP 97.1; O2SAT 92
== END 2023-11-07 17:45 | disposition home or self-care (01) ==
LOC: M ED 13:19
DX: R10.814 Left lower quadrant abdominal tenderness (principal); E11.9 Type 2 diabetes mellitus without complications; I10 Essential (primary) hypertension; F17.210 Nicotine dependence, cigarettes, uncomplicated; Z88.8 Allergy status to other drugs, medicaments and biological substances; Z79.51 Long term (current) use of inhaled steroids; Z79.1 Long term (current) use of non-steroidal anti-inflammatories (NSAID); Z79.4 Long term (current) use of insulin; Z79.84 Long term (current) use of oral hypoglycemic drugs; Z79.810 Long term (current) use of selective estrogen receptor modulators (SERMs); Z79.899 Other long term (current) drug therapy
CPT/HCPCS: 36415; 75635; 80048; 85027; 99284; J1885; Q9967

== ENCOUNTER → 2023-11-23 | Outpatient (CLI) | payer MEDICARE ==
[~2023-11-23] MED LIST changes: +LANTINJ4 SC; +METF-838 PO; +MULT-90 PO
[2023-11-23 15:04] LABS: CHOLESTEROL RISK RATIO 4.83 (<5); HDL CHOLESTEROL 35.6 MG/DL (>40); NON-HDL-C 136.4 MG/DL
== END ==
LOC: M PLALAB 13:14
PROVIDERS: ATTEND Nurse Practitioner Adult Health
DX: E78.2 Mixed hyperlipidemia (principal); E11.9 Type 2 diabetes mellitus without complications; D69.8 Other specified hemorrhagic conditions; Z79.899 Other long term (current) drug therapy; Z01.818 Encounter for other preprocedural examination

== ENCOUNTER → 2023-11-23 | Outpatient (CLI) | payer MEDICARE ==
[2023-11-23 14:53] LABS: HEMATOCRIT 53.8 % (42.0-52.0); HEMOGLOBIN 17.8 g/dl (13.5-17.5); MEAN CORPUSCULAR HEMOGLOBIN 29.7 pg (27.0-33.0); MEAN CORPUSCULAR HGB CONC 33.1 g/dl (32.0-36.5); MEAN CORPUSCULAR VOLUME 89.8 fl (80.0-96.0); PLATELET COUNT, AUTOMATED 178 10^3/uL (150-450); RED BLOOD COUNT 5.99 10^6/uL (4.30-6.10); WHITE BLOOD COUNT 10.4 10^3/uL (4.0-10.0)
[2023-11-23 15:04] LABS: BLOOD UREA NITROGEN 21 MG/DL (9-23); CALCIUM LEVEL 9.3 MG/DL (8.3-10.6); CARBON DIOXIDE LEVEL 31 MMOL/L (20-31); CHLORIDE LEVEL 103 MMOL/L (98-107); CREATININE FOR GFR 0.86 MG/DL (0.70-1.30); GLOMERULAR FILTRATION RATE > 60.0 (>49); GLUCOSE, FASTING 119 MG/DL (74-106); POTASSIUM SERUM 4.6 MMOL/L (3.5-5.1); SODIUM LEVEL 137 MMOL/L (136-145)
[2023-11-23 15:17] LABS: INR 0.99; PARTIAL THROMBOPLASTIN TIME 27.5 SECONDS (24.8-34.2); PROTHROMBIN TIME 12.8 SECONDS (12.5-14.5)
== END ==
LOC: M PLALAB 13:12
PROVIDERS: ATTEND Physician Assistant
DX: Z01.818 Encounter for other preprocedural examination (principal); D69.8 Other specified hemorrhagic conditions

== ENCOUNTER → 2024-02-15 | Outpatient (CLI) | payer MEDICARE | LOC: M RAD 10:57 | PROVIDERS: ATTEND Student in an Organized Health Care Education/Training Program | DX: Z87.891 Personal history of nicotine dependence (principal) ==

== ENCOUNTER → 2024-02-18 | Outpatient (CLI) | payer MEDICARE ==
[~2024-02-18] MED LIST changes: -CYCL5TAB PO; +CYCL5TAB4 PO
== END ==
LOC: M RAD 08:03
PROVIDERS: ATTEND Student in an Organized Health Care Education/Training Program
DX: Z87.891 Personal history of nicotine dependence (principal)

== ENCOUNTER → 2024-04-04 | Outpatient (REF) | payer MEDICARE | LOC: M SFHCPLAZ 17:07 | PROVIDERS: ATTEND Physician Assistant Medical | DX: J44.1 Chronic obstructive pulmonary disease with (acute) exacerbation (principal) ==

== ENCOUNTER → 2024-06-13 | Outpatient (CLI) | payer MEDICARE ==
[~2024-06-13] MED LIST changes: +GLIP-320 PO; -GLIP10TA18 PO
[2024-06-13 17:55] LABS: HEMATOCRIT 60.8 % (42.0-52.0); MEAN CORPUSCULAR HEMOGLOBIN 29.2 pg (27.0-33.0); MEAN CORPUSCULAR HGB CONC 32.9 g/dl (32.0-36.5); MEAN CORPUSCULAR VOLUME 88.8 fl (80.0-96.0); PLATELET COUNT, AUTOMATED 174 10^3/uL (150-450); RED BLOOD COUNT 6.85 10^6/uL (4.30-6.10)
[2024-06-13 18:17] LABS: BLOOD UREA NITROGEN 29 MG/DL (9-23); CALCIUM LEVEL 9.5 MG/DL (8.3-10.6); CARBON DIOXIDE LEVEL 33 MMOL/L (20-31); CHLORIDE LEVEL 100 MMOL/L (98-107); CHOLESTEROL LEVEL 180 MG/DL (<200); CHOLESTEROL RISK RATIO 4.42 (<5); CREATININE FOR GFR 1.03 MG/DL (0.70-1.30); GLOMERULAR FILTRATION RATE > 60.0 (>49); GLUCOSE, FASTING 199 MG/DL (74-106); HDL CHOLESTEROL 40.7 MG/DL (>40); LDL CHOLESTEROL 102.3 MG/DL (<100); NON-HDL-C 139.3 MG/DL; POTASSIUM SERUM 4.6 MMOL/L (3.5-5.1); SODIUM LEVEL 139 MMOL/L (136-145); TRIGLYCERIDES LEVEL 185 MG/DL (<150)
[2024-06-13 18:51] LABS: HEMOGLOBIN A1c 13.9 % (4.0-6.0)
== END ==
LOC: M PLALAB 14:58
PROVIDERS: ATTEND Student in an Organized Health Care Education/Training Program
DX: Z00.00 Encounter for general adult medical examination without abnormal findings (principal); E11.65 Type 2 diabetes mellitus with hyperglycemia; I10 Essential (primary) hypertension

== ENCOUNTER → 2024-07-25 | Outpatient (CLI) | payer MEDICARE | LOC: M RAD 09:21 | PROVIDERS: ATTEND Student in an Organized Health Care Education/Training Program | DX: Z87.891 Personal history of nicotine dependence (principal) ==

== ENCOUNTER 2024-08-25 08:33 | Day surgery (SDC) | payer MEDICARE ==
[~2024-08-25] VITALS: Ht 170.2 cm; Wt 86.4 kg
[~2024-08-25 08:33] MED LIST changes: +BUPR150T12 PO; +BUPR150T15 PO; -BUPR1TAB53 PO; +FARX1TAB3 PO; +GABA-1171 PO; +GLIM2TAB4 PO; +HUMU1INJ SC; +HYDR25TA87 PO; +MAGN400T33 PO; +METO1TAB32 PO; +PIOG1TAB55 PO; +POTA10CA70 PO; +PREG-35 PO; -PREG100CA PO
[2024-08-25] MEDS ORDERED: LIDOCAINE 2% 100MG/5ML SDV (FOR ANES.) As Ordered ONE (09:20)
[2024-08-25] MEDS ORDERED: propofoL 200 MG/20 ML VIAL As Ordered ONE (09:20)
[2024-08-25] MEDS ORDERED: GLYCOPYRROLATE INJ 0.2 MG/ML 2 ML VIAL As Ordered ONE (09:20)
[2024-08-25 10:42] VITALS: TEMP 97.3
[2024-08-25 10:58] VITALS: BP 121/71; O2SAT 94
== END 2024-08-25 11:05 | disposition home or self-care (01) ==
LOC: M OPP 08:33
PROVIDERS: ATTEND Internal Medicine Gastroenterology
DX: Z86.0101 Personal history of adenomatous and serrated colon polyps (principal); G47.30 Sleep apnea, unspecified; Z88.8 Allergy status to other drugs, medicaments and biological substances; Z79.82 Long term (current) use of aspirin; Z79.4 Long term (current) use of insulin; Z79.84 Long term (current) use of oral hypoglycemic drugs; Z79.85 Long-term (current) use of injectable non-insulin antidiabetic drugs; Z79.899 Other long term (current) drug therapy; J44.9 Chronic obstructive pulmonary disease, unspecified
CPT/HCPCS: 45378; J1596

== ENCOUNTER → 2025-02-01 | Outpatient (CLI) | payer MEDICARE, MEDICAID ==
[~2025-02-01] MED LIST changes: -IBUP-1022 PO; +IBUP600T42 PO; +SEMA1PEN2
[2025-02-01 17:59] LABS: BASO # 0.1 10^3/uL (0.0-0.2); BASO % 0.7 % (0.0-1.0); EOS # 0.1 10^3/uL (0.0-0.5); EOS % 1.5 % (0.0-3.0); LYMPH # 2.7 10^3/uL (1.5-5.0); LYMPH % 33.9 % (24.0-44.0); MONO # 0.6 10^3/uL (0.0-0.8); MONO % 7.2 % (2.0-8.0); NEUTROPHILS # 4.5 10^3/uL (1.5-8.5); NEUTROPHILS % 56.3 % (36.0-66.0); PLATELET COUNT, AUTOMATED 176 10^3/uL (150-450)
[2025-02-01 18:18] LABS: ALT/SGPT 14.0 U/L (7.0-40); AST/SGOT 11.0 U/L (<34); CALCIUM LEVEL 9.0 MG/DL (8.3-10.6); CARBON DIOXIDE LEVEL 31.0 MMOL/L (20-31); CHLORIDE LEVEL 100.0 MMOL/L (98-107); CREATININE FOR GFR 1.08 MG/DL (0.70-1.30); GLOMERULAR FILTRATION RATE 74.3 (>49); POTASSIUM SERUM 4.2 MMOL/L (3.5-5.1); SODIUM LEVEL 142.0 MMOL/L (136-145)
== END ==
LOC: M LAB 17:20
PROVIDERS: ATTEND Internal Medicine Medical Oncology
DX: D75.1 Secondary polycythemia (principal)

== ENCOUNTER → 2025-02-09 | Outpatient (REF) | payer MEDICARE, MEDICAID ==
[2025-02-09 19:33] LABS: TOTAL PROTEIN,RANDOM URINE 331.1 MG/DL (0.0-14.0)
== END ==
LOC: M LAB REF 17:08
PROVIDERS: ATTEND Nurse Practitioner Family
DX: R80.9 Proteinuria, unspecified (principal)

== ENCOUNTER → 2025-02-22 | Outpatient (CLI) | payer MEDICARE, MEDICAID ==
[2025-02-22 10:18] LABS: BASO # 0.1 10^3/uL (0.0-0.2); BASO % 0.9 % (0.0-1.0); EOS # 0.1 10^3/uL (0.0-0.5); EOS % 1.7 % (0.0-3.0); LYMPH # 1.8 10^3/uL (1.5-5.0); LYMPH % 25.5 % (24.0-44.0); MONO # 0.6 10^3/uL (0.0-0.8); MONO % 8.2 % (2.0-8.0); NEUTROPHILS # 4.4 10^3/uL (1.5-8.5); NEUTROPHILS % 63.4 % (36.0-66.0); PLATELET COUNT, AUTOMATED 143 10^3/uL (150-450)
[2025-02-22 10:42] LABS: ALT/SGPT 19.0 U/L (7.0-40); AST/SGOT 18.0 U/L (<34); CALCIUM LEVEL 8.8 MG/DL (8.3-10.6); CARBON DIOXIDE LEVEL 33.0 MMOL/L (20-31); CHLORIDE LEVEL 101.0 MMOL/L (98-107); CHOLESTEROL LEVEL 154.0 MG/DL (<200); CHOLESTEROL RISK RATIO 3.65 (<5); CREATININE FOR GFR 0.95 MG/DL (0.70-1.30); GLOMERULAR FILTRATION RATE 86.1 (>42); LDL CHOLESTEROL 86.7 MG/DL (<100); MAGNESIUM LEVEL 2.0 MG/DL (1.8-2.4); NON-HDL-C 111.9 MG/DL; POTASSIUM SERUM 5.3 MMOL/L (3.5-5.1); SODIUM LEVEL 139.0 MMOL/L (136-145); TRIGLYCERIDES LEVEL 126.0 MG/DL (<150)
[2025-02-22 10:46] LABS: VITAMIN B12 LEVEL 557.0 PG/ML (211-911)
[2025-02-22 11:31] LABS: ESTIMATED AVERAGE GLUCOSE 232.0 MG/DL (60-110)
== END ==
LOC: M PLALAB 09:08
DX: D75.1 Secondary polycythemia (principal); E11.65 Type 2 diabetes mellitus with hyperglycemia; E78.00 Pure hypercholesterolemia, unspecified; M54.42 Lumbago with sciatica, left side

== ENCOUNTER → 2025-02-22 | Outpatient (REF) | payer MEDICARE | LOC: M SFHCPLAZ 08:45 | PROVIDERS: ATTEND Family Medicine | DX: Z53.9 Procedure and treatment not carried out, unspecified reason (principal) ==

== ENCOUNTER 2025-04-04 19:06 | Emergency (ER) | payer MEDICARE ==
[~2025-04-04] VITALS: Ht 170.2 cm; Wt 81.8 kg
[2025-04-04 22:47] LABS: BASO # 0.1 10^3/uL (0.0-0.2); BASO % 1.0 % (0.0-1.0); EOS # 0.2 10^3/uL (0.0-0.5); EOS % 2.1 % (0.0-3.0); LYMPH # 2.9 10^3/uL (1.5-5.0); LYMPH % 27.2 % (24.0-44.0); MONO # 0.8 10^3/uL (0.0-0.8); MONO % 7.0 % (2.0-8.0); NEUTROPHILS # 6.7 10^3/uL (1.5-8.5); NEUTROPHILS % 62.3 % (36.0-66.0); PLATELET COUNT, AUTOMATED 183 10^3/uL (150-450)
[2025-04-04 23:12] LABS: CALCIUM LEVEL 10.5 MG/DL (8.3-10.6); CARBON DIOXIDE LEVEL 32.0 MMOL/L (20-31); CHLORIDE LEVEL 98.0 MMOL/L (98-107); CREATININE FOR GFR 1.07 MG/DL (0.70-1.30); GLOMERULAR FILTRATION RATE 74.7 (>42); POTASSIUM SERUM 4.9 MMOL/L (3.5-5.1); SODIUM LEVEL 139.0 MMOL/L (136-145)
[2025-04-05 07:55] VITALS: BP 131/72; TEMP 97.4; O2SAT 94
== END 2025-04-05 08:18 | disposition home or self-care (01) ==
LOC: M ED 19:06
DX: D45 Polycythemia vera (principal); E11.9 Type 2 diabetes mellitus without complications; I12.9 Hypertensive chronic kidney disease with stage 1 through stage 4 chronic kidney disease, or unspecified chronic kidney disease; J44.9 Chronic obstructive pulmonary disease, unspecified; G47.33 Obstructive sleep apnea (adult) (pediatric); F17.210 Nicotine dependence, cigarettes, uncomplicated; Z88.8 Allergy status to other drugs, medicaments and biological substances; Z79.51 Long term (current) use of inhaled steroids; Z79.1 Long term (current) use of non-steroidal anti-inflammatories (NSAID); Z79.4 Long term (current) use of insulin; Z79.84 Long term (current) use of oral hypoglycemic drugs; Z79.899 Other long term (current) drug therapy; Z79.810 Long term (current) use of selective estrogen receptor modulators (SERMs)
CPT/HCPCS: 36415; 80048; 80053; 82043; 83036; 85025; 99284; G0463

== ENCOUNTER → 2025-04-04 | Outpatient (REF) | payer MEDICARE | LOC: M SFHCPLAZ 14:21 | PROVIDERS: ATTEND Family Medicine | DX: Z53.9 Procedure and treatment not carried out, unspecified reason (principal) ==

== ENCOUNTER → 2025-04-04 | Outpatient (CLI) | payer MEDICARE ==
[2025-04-04 17:43] LABS: BASO # 0.1 10^3/uL (0.0-0.2); BASO % 1.1 % (0.0-1.0); EOS # 0.2 10^3/uL (0.0-0.5); EOS % 1.8 % (0.0-3.0); LYMPH # 2.8 10^3/uL (1.5-5.0); LYMPH % 30.4 % (24.0-44.0); MONO # 0.7 10^3/uL (0.0-0.8); MONO % 7.1 % (2.0-8.0); NEUTROPHILS # 5.5 10^3/uL (1.5-8.5); NEUTROPHILS % 59.3 % (36.0-66.0); PLATELET COUNT, AUTOMATED 165 10^3/uL (150-450)
[2025-04-04 17:54] LABS: ALT/SGPT 25.0 U/L (7.0-40); AST/SGOT 17.0 U/L (<34); CALCIUM LEVEL 9.5 MG/DL (8.3-10.6); CARBON DIOXIDE LEVEL 34.0 MMOL/L (20-31); CHLORIDE LEVEL 101.0 MMOL/L (98-107); CREATININE FOR GFR 1.18 MG/DL (0.70-1.30); GLOMERULAR FILTRATION RATE 66.4 (>42); POTASSIUM SERUM 4.4 MMOL/L (3.5-5.1); SODIUM LEVEL 142.0 MMOL/L (136-145)
[2025-04-04 17:55] LABS: CREATININE, URINE 20.0 MG/DL
[2025-04-04 18:09] LABS: MALB URINE SIEMENS 384.0 MG/L; MAU/CREAT RATIO 1920.0 MCG/MG (0.0-30.0)
[2025-04-04 18:28] LABS: ESTIMATED AVERAGE GLUCOSE 312.0 MG/DL (60-110)
== END ==
LOC: M PLALAB 14:44
DX: J96.11 Chronic respiratory failure with hypoxia (principal); E11.65 Type 2 diabetes mellitus with hyperglycemia